=== PATIENT | male | born 1945 | race Caucasian/White ===

== ENCOUNTER 2017-12-06 19:14 | Inpatient (IN) | payer MEDICARE ==
--- NOTE | 2017-12-06 20:56 | CT ---
CT OF THE HEAD 12/06/17 COMPARISON: 01/26/17 HISTORY: Increasing weakness, slurred speech. TECHNIQUE: Serial axial CT imaging is obtained at 5 mm intervals from vertex through skull base without contrast . FINDINGS: The imaged paranasal sinuses/mastoid air cells are well aerated. There is no displaced calvarial frac ture. There is atherosclerotic calcifications of the cavernous carotid arteries. There is no intracra nial hemorrhage, midline shift, mass effect or ventricular enlargement. There is hypodensity in the r egion of the olman which may signify artifact or prior ischemia, similar when compared to prior imagin g. There is periventricular hypodensity suggesting stable small vessel disease. IMPRESSION: Stable head CT as detailed above. No intracranial hemorrhage noted. If There is clinical concern for acute infarction, followup brain MRI advised. POS: [facility]
[2017-12-06 21:05] LABS: #Basophils 0.1 thou/uL (0.0-0.2); #Eosinphils 0.2 thou/uL (0.0-0.7); #Lymphocytes 1.8 thou/uL (1.20-3.40); #Monocytes 0.8 thou/uL (0.11-0.59); #Neutrophils 3.8 thou/uL (1.40-6.50); %Basophils 1.2 % (0.0-1.0); %Lymphocytes 27.2 % (21.0-51.0); %Monocytes 11.9 % (0.0-10.0); %Neutrophils 56.7 % (42.0-75.0); Hemoglobin 14.7 g/dL (14.0-18.0); Mean Corpuscular HGB CONC 33.9 g/dL (32.0-36.0); Mean Corpuscular Hemoglobin 28.9 pg (27.0-31.0); Mean Corpuscular Volume 85.4 fl (80.0-94.0); Mean Platelet Volume 7.7 fL (7.4-10.4); Platelet Count 179 thou/uL (130-400); RBC Distribution Width 14.7 % (11.5-14.5); Red Blood Cell (RBC) Count 5.08 mill/uL (4.70-6.10); White Blood Cell (WBC) Count 6.7 thou/uL (4.8-10.8)
[2017-12-06] MEDS ORDERED: Atropine Sulfate 1 mg/10 ml Syringe ONE (21:07)
[2017-12-06 21:26] LABS: ALT (SGPT) 9 U/L (8-55); AST (SGOT) 11 U/L (5-34); Albumin 3.7 g/dL (3.4-4.8); Alkaline Phosphatase 74 U/L (40-150); Anion Gap 13 mmol/L (10-20); BUN (Urea Nitrogen) 20 mg/dL (8.4-25.7); Bilirubin, Total 0.4 mg/dL (0.2-1.2); CK (CPK) 37 U/L (30-200); Calc. Creatinine Clearance 0 mL/min (70-130); Calcium 9.4 mg/dL (7.8-10.44); Carbon Dioxide 27 mmol/L (23-31); Chloride 106 mmol/L (98-107); Estimated GFR-MDRD Greater than 90; Globulin 2.7 g/dL (2.4-3.5); Glucose 68 mg/dL (80-115); Protein, Total 6.4 g/dL (5.8-8.1); Sodium 143 mmol/L (136-145)
[2017-12-06 21:35] LABS: CKMB 0.8 ng/mL (0-6.6); Troponin I 0.011 ng/mL (< 0.028)
[2017-12-06 22:33] LABS: Bilirubin Negative (Negative); Blood, Urine Negative (Negative); Clarity CLEAR (Clear); Glucose, Urine (Dipstick) 100 mg/dL (Negative); Leukocyte Negative (Negative); Nitrite Negative (Negative); Protein, Urine (Dipstick) 30 mg/dL (Neg-Trace); Specific Gravity, Urine 1.019 (1.002-1.036)
[2017-12-06 22:34] LABS: Bacteria/HPF None Seen HPF (None Seen); Hyaline Casts/LPF 0-3 HYALINE CAST LPF (0-3 Hyaline); Pathc Cast-AUWi Flag 0.14 (0-2.49); Squamous Epithelial None Seen HPF (0-3); WBC/HPF 0-3 HPF (0-3)
[2017-12-06] MEDS ORDERED: Ondansetron ODT 4 MG TAB SL PRN (23:12)
[2017-12-06] MEDS ORDERED: Acetaminophen 325 MG TAB PO PRN ×2 (23:12→23:57)
[2017-12-06] MEDS ORDERED: Ondansetron HCl/PF 4 MG/2 ML Vial IVP PRN (23:12)
[2017-12-06 23:23] VITALS: BMI 27.3
[2017-12-06] MEDS ORDERED: Enalaprilat Dihydrate 1.25 MG/ML VIAL SLOW IVP PRN (23:57)
[2017-12-06] MEDS ORDERED: Bisacodyl 5 MG TAB PO PRN (23:57)
[2017-12-06] MEDS ORDERED: hydrALAZINE 20 MG/ML VIAL SLOW IVP PRN (23:57)
[2017-12-06] MEDS ORDERED: Acetaminophen 650 MG Suppository PR PRN (23:57)
[2017-12-07] MEDS ORDERED: Potassium Chloride 20 MEQ TAB PO SCH (00:15)
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
[2017-12-07 01:04] LABS: Troponin I 0.016 ng/mL (< 0.028)
[2017-12-07 04:29] LABS: #Eosinphils 0.2 thou/uL (0.0-0.7); #Lymphocytes 1.7 thou/uL (1.20-3.40); #Monocytes 0.7 thou/uL (0.11-0.59); #Neutrophils 4.8 thou/uL (1.40-6.50); %Basophils 0.3 % (0.0-1.0); %Eosinophils 2.8 % (0.0-10.0); %Lymphocytes 23.4 % (21.0-51.0); %Monocytes 8.8 % (0.0-10.0); %Neutrophils 64.7 % (42.0-75.0); Hemoglobin 15.6 g/dL (14.0-18.0); Mean Corpuscular HGB CONC 33.2 g/dL (32.0-36.0); Mean Corpuscular Hemoglobin 28.4 pg (27.0-31.0); Mean Corpuscular Volume 85.4 fl (80.0-94.0); Mean Platelet Volume 8.5 fL (7.4-10.4); Platelet Count 175 thou/uL (130-400); RBC Distribution Width 14.7 % (11.5-14.5); Red Blood Cell (RBC) Count 5.51 mill/uL (4.70-6.10); White Blood Cell (WBC) Count 7.4 thou/uL (4.8-10.8)
[2017-12-07 04:34] LABS: Anion Gap 12 mmol/L (10-20); BUN (Urea Nitrogen) 14 mg/dL (8.4-25.7); Calc. Creatinine Clearance 108 mL/min (70-130); Calcium 9.3 mg/dL (7.8-10.44); Carbon Dioxide 26 mmol/L (23-31); Cardiac Risk 5.6 (Less than 4.5); Chloride 105 mmol/L (98-107); Cholesterol 184 mg/dl (< 200 Desired); Estimated GFR-MDRD Greater than 90; Glucose 92 mg/dL (80-115); HDL Cholesterol 33 mg/dL (>60 Neg Risk); LDL Cholesterol, Calculated 134 mg/dL; Potassium 3.6 mmol/L (3.5-5.1); Sodium 139 mmol/L (136-145); Triglycerides 86 mg/dL (Less than 150)
[2017-12-07 04:39] LABS: Troponin I 0.025 ng/mL (< 0.028)
[2017-12-07] MEDS ORDERED: Aspirin 325 mg Enteric Coated Tablet PO SCH (09:00)
[2017-12-07] MEDS: Atorvastatin Calcium 40 MG TAB PO SCH (09:28)
[2017-12-07] MEDS: Alogliptin 25 MG TAB PO SCH (09:28)
[2017-12-07] MEDS: Glimepiride 4 MG TAB PO SCH (09:28)
[2017-12-07] MEDS: metFORMIN 500 MG TAB PO SCH ×2 (09:28→16:35)
[2017-12-07] MEDS: Aspirin 325 mg Enteric Coated Tablet PO SCH (09:29)
[2017-12-07] MEDS: Lisinopril 20 MG TAB PO SCH (09:30)
[2017-12-07] MEDS: Enoxaparin Sodium 40 MG/0.4 ML SYRINGE SC SCH (09:30)
--- NOTE | 2017-12-07 09:44 | ULT ---
ULTRASOUND DOPPLER DUPLEX CAROTID: Date: 12/07/17 HISTORY: 72-year-old male with TIA and CVA. TECHNIQUE: Falcon scale, color flow, and spectral analysis of major arteries of neck. FINDINGS: There is intimal thickening throughout the bilateral visualized common carotid arteries. There is mil d to moderate calcified plaque at the bilateral proximal internal carotid arteries, including carotid bulbs. Highest peak systolic velocities in the internal carotid arteries are 50 cm/s on the right and 65 cm/ s on the left. ICA/CCA ratios are 1.6 on the right and 1.1 on the left. Vertebral artery flow is antegrade bilaterally. IMPRESSION: 1. Mild to moderate atherosclerosis of bilateral proximal internal carotid arteries. 2. No evidence of hemodynamically significant stenosis. POS: [facility]
--- NOTE | 2017-12-07 10:37 | MRI ---
BRAIN MRI NONCONTRAST: COMPARISON: 01/26/17. INDICATION: Progressive weakness, slurred speech, stroke. FINDINGS: There is moderate global atrophy with compensatory dilatation of the ventricular system. There is a small focus of restriction involving the right pontomedullary junction. There is mild chronic microv ascular ischemic disease with superimposed cavitary lacunar infarctions. Pontine gliosis is present. Small nidus of susceptibility artifact involves the anterior right thalamus. IMPRESSION: 1. Small acute infarction of the right pontomedullary junction. 2. Chronic ischemic disease. POS: [facility]
--- NOTE | 2017-12-07 11:31 | RAD ---
MODIFIED BARIUM SWALLOW WITH SPEECH THERAPIST: Date: 12/07/17 HISTORY: 72-year-old male with dysphagia following cerebral infarction I69.391, dysphagia oropharyngeal phase R13.12, and feeding difficulties R63.3. FINDINGS: There is flash penetration with nectar. There is silent penetration with thin barium. There is silent aspiration with thin liquid barium during chin-tuck. Residua in the vallecula with solids, which sub sequently clears with thin liquid swallow. There is adequate epiglottic inversion. Somewhat decreased laryngeal elevation. IMPRESSION: 1. Pharyngeal dysphagia, including penetration and aspiration. 2. See separate complete report by speech therapist. POS: [facility]
[2017-12-07] MEDS ORDERED: Albuterol Sulfate 2.5 mg/3 ml Neb NEB PRN (13:23)
--- NOTE | 2017-12-07 14:16 | PDOC.PN ---
- Subjective Encounter Start Date: 12/07/17 Encounter Start Time: 14:21 Subjective: Seen and examined for new R pontoomedullary infarction. -: No acomplaints this morning. Feels better. -: No aute events overnight - Objective MAR Reviewed: Yes Result Diagrams: 12/07/17 04:05 12/07/17 04:05 Phys Exam - Physical Examination Constitutional: NAD HEENT: PERRLA, moist MMs, sclera anicteric, oral pharynx no lesions Neck: no JVD, supple, full ROM Respiratory: no wheezing, no rales, no rhonchi, clear to auscultation bilateral Cardiovascular: RRR, no significant murmur, no rub Gastrointestinal: soft, non-tender, no distention, positive bowel sounds Musculoskeletal: no edema, pulses present Neurological: moves all 4 limbs R hemiparesis. Strength 3/5 on R; 5/5 on left extremities. Psychiatric: normal affect, A&O x 3 Skin: no rash, normal turgor Dx/Plan (1) Acute CVA (cerebrovascular accident) Code(s): I63.9 - CEREBRAL INFARCTION, UNSPECIFIED Status: Acute Comment: Stable. Has R hemiparesis. MRI brain showed R pontomedullary junction infarction. Started on ASA, statin. Neurology consulted. (2) Bradycardia Code(s): R00.1 - BRADYCARDIA, UNSPECIFIED Status: Acute Comment: Resolved. Likely 2/2 beta-kaitlyn use. Will hold and monitor on tele. (3) Hypokalemia Code(s): E87.6 - HYPOKALEMIA Status: Resolved Comment: Replete. (4) Diabetes type 2, controlled Code(s): E11.9 - TYPE 2 DIABETES MELLITUS WITHOUT COMPLICATIONS Status: Chronic Qualifiers: Diabetes mellitus usp insulin use: without usp use Diabetes mellitus complication status: with unspecified complications Qualified Code(s) : E11.8 - Type 2 diabetes mellitus with unspecified complications Comment: Controlled. Continue home medications. Obtain A1c. (5) Dyslipidemia Code(s): E78.5 - HYPERLIPIDEMIA, UNSPECIFIED Status: Chronic Comment: Continue Atorvastatin. (6) Hypertension Code(s): I10 - ESSENTIAL (PRIMARY) HYPERTENSION Status: Chronic Qualifiers: Hypertension type: essential hypertension Qualified Code(s): I10 - Essential (primary) hypertension Comment: Achieving fair control. Continue Lisinopril. Hydralazine PRN. (7) Dysphagia Code(s): R13.10 - DYSPHAGIA, UNSPECIFIED Status: Acute Qualifiers: Dysphagia type: oropharyngeal phase Qualified Code(s): R13.12 - Dysphagia, oropharyngeal phase - Plan cont current plan of care, PT/OT, social professionals, speech therapy f/u Neurology recommendations. f/u modified barium swallow Review of Systems - Medications/Allergies Allergies/Adverse Reactions: Allergies Allergy/AdvReac Type Severity Reaction Status Date / Time liraglutide [From Victoza] Allergy Severe Anaphylaxis Verified 01/26/17 15:27 Medications: Current Medications Acetaminophen (Tylenol) 650 mg PO Q4H PRN PRN Reason: Headache/Fever or Pain Acetaminophen (Tylenol) 650 mg NV Q4H PRN PRN Reason: Headache/Fever or Pain Albuterol Sulfate (Ventolin) 2.5 mg NEB Q4H PRN PRN Reason: SOB Alogliptin Benzoate (Alogliptin) 25 mg PO DAILY [facility] Last Admin: 12/07/17 09:28 Dose: 25 mg Aspirin (Ecotrin) 325 mg PO DAILY [facility] Last Admin: 12/07/17 09:29 Dose: 325 mg Atorvastatin Calcium (Lipitor) 80 mg PO DAILY [facility] Last Admin: 12/07/17 09:28 Dose: 80 mg Bisacodyl (Dulcolax) 10 mg PO DAILYPRN PRN PRN Reason: Constipation Enalaprilat (Vasotec) 1.25 mg SLOW IVP Q6H PRN PRN Reason: BP > 220/110 Enoxaparin Sodium (Lovenox) 40 mg SC 0900 [facility] Last Admin: 12/07/17 09:30 Dose: 40 mg Glimepiride (Amaryl) 4 mg PO QAM-[facility] Last Admin: 12/07/17 09:28 Dose: 4 mg Hydralazine HCl (Apresoline) 10 mg SLOW IVP Q4H PRN PRN Reason: BP > 220/110 Lisinopril (Zestril) 20 mg PO DAILY [facility] Last Admin: 12/07/17 09:30 Dose: 20 mg Metformin HCl (Glucophage) 1,000 mg PO BID-[facility] Last Admin: 12/07/17 09:28 Dose: 1,000 mg Pantoprazole Sodium (Protonix) 40 mg PO DAILY [facility] Last Admin: 12/07/17 09:27 Dose: 40 mg Sodium Chloride (Flush - Normal Saline) 10 ml IVF Q12HR [facility] Last Admin: 12/07/17 09:29 Dose: 10 ml Sodium Chloride (Flush - Normal Saline) 10 ml IVF PRN PRN PRN Reason: Saline Flush
--- NOTE | 2017-12-07 16:37 | RAD ---
CHEST ONE VIEW 12/07/17 HISTORY: Shortness of breath. COMPARISON: 01/12/17 FINDINGS: Portable upright chest radiograph demonstrates sternotomy wires. Patient is slightly rotated to the l eft. Normal cardiac silhouette. The pulmonary vessel and hilum are normal. Costophrenic angles are cl ear. No consolidation or mass. No pneumothorax. There is diffuse bone demineralization. Hyperdensity projecting over the epigastric region is presumed to be contrast, in the stomach. Additional contrast is noted in the colon. IMPRESSION: No acute cardiopulmonary process. POS: [facility]
--- NOTE | 2017-12-07 17:11 | CON ---
DATE OF CONSULTATION: 12/07/2017 NEUROLOGY CONSULTATION FOLLOWUP NOTE HISTORY OF PRESENT ILLNESS: Mr. Machado is a 72-year-old gentleman who has been a patient of Dr. Scott durand for prior pontine stroke. He presented with a new onset of right-sided weakness and some dysarthr ia. His MRI confirmed a new area of infarct involving the pontomedullary junction. His carotid ultr asound does not show any stenosis. His echocardiogram is pending. He was not taking aspirin prior t o admission. This has been started now since he was admitted. He has not had any physical therapy a ssessments yet. He was complaining of some shortness of breath and received a breathing treatment. I agree with your current plan of treatment. He may need to be transferred to rehab to continue his recovery.
[2017-12-08 05:42] LABS: Hemoglobin A1c 7.4 % (4.0-6.0)
[2017-12-08 05:47] LABS: Anion Gap 13 mmol/L (10-20); BUN (Urea Nitrogen) 11 mg/dL (8.4-25.7); Calc. Creatinine Clearance 99 mL/min (70-130); Calcium 9.8 mg/dL (7.8-10.44); Carbon Dioxide 26 mmol/L (23-31); Chloride 103 mmol/L (98-107); Estimated GFR-MDRD Greater than 90; Glucose 147 mg/dL (80-115); Potassium 3.4 mmol/L (3.5-5.1); Sodium 139 mmol/L (136-145)
[2017-12-08] MEDS: Enoxaparin Sodium 40 MG/0.4 ML SYRINGE SC SCH (08:05)
[2017-12-08] MEDS: Lisinopril 20 MG TAB PO SCH (08:05)
[2017-12-08] MEDS: Atorvastatin Calcium 40 MG TAB PO SCH (08:05)
[2017-12-08] MEDS: Aspirin 325 mg Enteric Coated Tablet PO SCH (08:06)
[2017-12-08] MEDS: metFORMIN 500 MG TAB PO SCH ×2 (08:06→17:45)
[2017-12-08] MEDS: Alogliptin 25 MG TAB PO SCH (08:06)
[2017-12-08] MEDS: Glimepiride 4 MG TAB PO SCH (08:06)
[2017-12-08] MEDS ORDERED: Famotidine 20 MG TAB PO SCH ×2 (09:15→21:00)
[2017-12-08] MEDS ORDERED: Potassium Chloride 10 MEQ TAB PO SCH (09:15)
[2017-12-08 18:09] VITALS: BP 167/117; TEMP 98.3
--- NOTE | 2017-12-10 08:26 | DIS ---
DATE OF DISCHARGE: 12/08/2017 DISCHARGE DISPOSITION: To inpatient rehabilitation. FOLLOWUP: Follow up with Dr. Mohr in 1 week. Follow up with Dr. Liberty Estrella post discharge from re habilitation. BRIEF HOSPITAL COURSE: Patient is a 72-year-old male with hypertension; diabetes mellitus, type 2; c oronary artery disease with medication noncompliance, presented to the hospital with stroke-like symp toms. Please refer to the history and physical dated 12/06/2017 for further details. The patient was admitted to the stroke unit with a diagnosis of CVA. MRI of the brain showed small a cute infarction in the right pontomedullary junction with chronic ischemic disease. Carotid Doppler was negative for hemodynamically significant stenosis. There was [id number] atherosclerosis of bilateral proximal internal carotid arteries. Echocardiogram showed left ventricular ejection fract ion of 60%-65% with hypokinesis of the inferior wall and grade 1/3 diastolic dysfunction. The patien t was seen by Dr. Lopez, who recommended restarting aspirin, which patient had discontinued taking. On the day of discharge, there was no new focal deficit noted. Patient will continue therapy at [facility] inpatient rehabilitation. FINAL DIAGNOSES: 1. Acute cerebrovascular accident. 2. Diabetes mellitus, type 2. A1c was 7.4. 3. Hypokalemia. 4. Hyperlipidemia with cholesterol of 184, LDL 134, triglyceride 86. 5. Bradycardia with heart rate dropping in 30s on tele monitor. Beta blockers were discontinued. 6. Hypertension. 7. Coronary artery disease, status post coronary artery bypass grafting. 8. History of cerebrovascular accident. Total time coordinating the discharge of this patient was 33 minutes. DISCHARGE MEDICATIONS: Aspirin 325 mg daily, Lipitor 20 mg at bedtime, glimepiride 4 mg daily, lisin opril 20 mg daily, metformin 1000 mg twice a day, Protonix 40 mg daily, Januvia 100 mg daily.
== END 2017-12-08 19:35 | DRG 65 ==
LOC: ERS 19:14 → 2SE 21:50 → OBSVTOIN 12-07 13:50
PROVIDERS: ADMIT Internal Medicine; ATTEND Internal Medicine
DX: I63.9 Cerebral infarction, unspecified (principal); I69.351 Hemiplegia and hemiparesis following cerebral infarction affecting right dominant side; I10 Essential (primary) hypertension; I25.10 Atherosclerotic heart disease of native coronary artery without angina pectoris; E11.9 Type 2 diabetes mellitus without complications; Z95.1 Presence of aortocoronary bypass graft; R00.1 Bradycardia, unspecified; R47.1 Dysarthria and anarthria; E87.6 Hypokalemia; R13.12 Dysphagia, oropharyngeal phase
CPT/HCPCS: 36415; 36416; 70450; 70551; 71045; 74230; 80048; 80053; 80061; 81003; 81015; 82553; 83036; 84484; 85025; 93005; 93306; 93880; 94640; A4216; G8978-GP-CL; G8979-GP-CJ; G8987-GO-CL; G8988-GO-CJ; G8996-GN-CK; G8997-GN-CI; G8998-GN-CK; J0360; J0461; J1650; J7611

== ENCOUNTER 2017-12-11 14:29 | Day surgery (SDC) | payer MEDICARE ==
[~2017-12-11 14:29] MED LIST: PROPOFOL 200 MG/20 ML VIAL ONE
[2017-12-11] MEDS ORDERED: CEFAZOLIN/Water 2 GM/20 ML SYRINGE ONE (15:39)
[2017-12-11] MEDS ORDERED: hydrALAZINE 20 MG/ML VIAL ONE (18:40)
--- NOTE | 2017-12-12 05:07 | OP ---
DATE OF SURGERY: 12/11/2017 OPERATIVE PROCEDURE: Esophagogastroduodenoscopy with endoscopic gastrostomy tube placement. PREOPERATIVE DIAGNOSIS: A 72-year-old male with acute cerebrovascular accident and dysphag ia. The patient underwent EGD and PEG tube placement. POSTOPERATIVE DIAGNOSES: 1. Mild antral gastritis. 2. Mild duodenitis. 3. Successful placement of G-tube without any difficulty. PROCEDURE IN DETAIL: The patient was placed on his back and was given sedation by Anesthesia Departm ent. The patient received IV Ancef 2 grams in the day surgery. A bite block was placed. A Pentax v ideo gastroscope under direct vision was passed down the oropharynx, past the GE junction, into the s tomach. The patient had large amount of mucus in the throat, which was suctioned out. The esophagea l mucosa appeared normal. The GE junction, no pathology seen. The fundus, cardia, gastric body, no pathology seen. There was mild mucosal edema and erythema over the gastric antrum. Also, the duoden al bulb shows duodenitis. The G-tube site was marked by applying finger pressure and also by transil lumination from within. The site was cleaned and surgically prepped. The site was anesthetized with 1% Xylocaine infiltration. Over the site, a 16 Angiocath was advanced into the stomach. Through th e Angiocath, a guidewire was advanced into the stomach. This wire was grasped with polypectomy snare and pulled outside the mouth. To the end of the guidewire protruding outside the mouth, a gastrosto my tube was connected. The wire was pulled back retrograde and the tube left in place after incision was made in the skin around the wire area. The patient rescoped again. The tube appears in good pl neftaly and no complications noted. The stomach was decompressed and the scope removed. DISCHARGE PLANNING: Mr. Kwaku Machado is a 72-year-old male with a CVA recently with dysph agia. The patient underwent EGD and PEG tube placed. He underwent the procedure without difficulty. The patient being discharged back to [facility] and will be followed by Dr. Paradise Villarreal. May start tube feeding later on today or early tomorrow morning.
== END 2017-12-11 20:01 | disposition home or self-care (01) ==
LOC: SDC 14:29
PROVIDERS: ATTEND Internal Medicine Gastroenterology
PROC: 0DH63UZ Insertion of Feeding Device into Stomach, Percutaneous Approach (ICD-10-PCS; principal; 2017-12-11)
DX: R13.10 Dysphagia, unspecified (principal); I63.9 Cerebral infarction, unspecified; K29.70 Gastritis, unspecified, without bleeding; K29.80 Duodenitis without bleeding
CPT/HCPCS: 36416; 96374; J0360; J2704

== ENCOUNTER 2018-11-22 17:07 | Inpatient (IN) | payer MEDICARE ==
[2018-11-22 17:40] LABS: #Basophils 0.1 thou/uL (0.0-0.2); #Eosinphils 0.3 thou/uL (0.0-0.7); #Lymphocytes 1.9 thou/uL (1.20-3.40); #Monocytes 0.6 thou/uL (0.11-0.59); #Neutrophils 4.2 thou/uL (1.40-6.50); %Basophils 0.9 % (0.0-1.0); %Lymphocytes 26.5 % (21.0-51.0); %Monocytes 8.9 % (0.0-10.0); %Neutrophils 59.7 % (42.0-75.0); Mean Corpuscular HGB CONC 33.4 g/dL (32.0-36.0); Mean Corpuscular Volume 86.8 fL (78.0-98.0); Mean Platelet Volume 8.4 fL (7.4-10.4); Platelet Count 160 thou/uL (130-400); RBC Distribution Width 14.1 % (11.5-14.5); Red Blood Cell (RBC) Count 5.17 mill/uL (4.70-6.10)
[2018-11-22 17:58] LABS: ALT (SGPT) 10 U/L (8-55); AST (SGOT) 15 U/L (5-34); Albumin 3.8 g/dL (3.4-4.8); Alkaline Phosphatase 91 U/L (40-150); Anion Gap 13 mmol/L (10-20); BUN (Urea Nitrogen) 17 mg/dL (8.4-25.7); Bilirubin, Total 0.4 mg/dL (0.2-1.2); Calc. Creatinine Clearance 0 mL/min (70-130); Calcium 9.6 mg/dL (7.8-10.44); Carbon Dioxide 28 mmol/L (23-31); Chloride 107 mmol/L (98-107); Estimated GFR-MDRD 90; Globulin 3.1 g/dL (2.4-3.5); Glucose 79 mg/dL (83-110); Potassium 3.9 mmol/L (3.5-5.1); Protein, Total 6.9 g/dL (5.8-8.1); Sodium 144 mmol/L (136-145)
[2018-11-22] MEDS ORDERED: hydrALAZINE 20 MG/ML VIAL ONE ×2 (18:23→18:47)
--- NOTE | 2018-11-22 18:52 | RAD ---
CHEST ONE VIEW: HISTORY: Dyspnea. Bodyaches. COMPARISON: 12/07/2017 FINDINGS: Borderline cardiomegaly. Postop midline sternotomy. No confluent pneumonia, overt edema, or pleural effusion. IMPRESSION: No significant acute intrathoracic disease. Borderline heart size. Minimal rotation to the left. A therosclerosis of the aorta. POS: [facility]
[2018-11-22] MEDS ORDERED: Ondansetron PF 4 MG/2 ML Vial IVP PRN (20:38)
[2018-11-22] MEDS ORDERED: Ondansetron ODT 4 MG TAB SL PRN (20:38)
[2018-11-22 21:17] VITALS: BMI 25.7
[2018-11-22 21:25] LABS: Troponin I 0.018 ng/mL (< 0.028)
[2018-11-22] MEDS ORDERED: Acetaminophen 325 MG TAB PO PRN (21:30)
[2018-11-22] MEDS ORDERED: Senokot S 8.6-50 MG TAB PO PRN ×2 (21:30)
[2018-11-22] MEDS ORDERED: Bisacodyl 5 MG TAB PO PRN (21:30)
[2018-11-22] MEDS ORDERED: Diabetic Tussin 200 MG/10 ML UDCUP PO PRN (21:30)
[2018-11-22] MEDS ORDERED: Calcium Carbonate 500 MG ChewTAB PO PRN (21:30)
[2018-11-22] MEDS ORDERED: Ondansetron ODT 4 MG TAB PO PRN (21:30)
[2018-11-22] MEDS ORDERED: Nitroglycerin 0.4 MG TAB (25 Tab Bottle) SL PRN (21:30)
[2018-11-22] MEDS ORDERED: Benzonatate 100 MG CAP PO PRN (21:30)
[2018-11-22] MEDS ORDERED: Dextrose 50% Abboject 50 ML SYRINGE SLOW IVP PRN (22:05)
[2018-11-22] MEDS ORDERED: Dextrose 5% in Water 1,000 ML IV PRN (22:05)
[2018-11-22] MEDS ORDERED: Lisinopril 10 MG TAB PO SCH (22:15)
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
[2018-11-23 00:54] LABS: Troponin I 0.019 ng/mL (< 0.028)
[2018-11-23 05:41] LABS: #Basophils 0.1 thou/uL (0.0-0.2); #Eosinphils 0.4 thou/uL (0.0-0.7); #Lymphocytes 1.8 thou/uL (1.20-3.40); %Basophils 0.6 % (0.0-1.0); %Eosinophils 3.6 % (0.0-10.0); %Lymphocytes 17.6 % (21.0-51.0); %Monocytes 9.8 % (0.0-10.0); %Neutrophils 68.5 % (42.0-75.0); Hemoglobin 15.9 g/dL (14.0-18.0); Mean Corpuscular HGB CONC 33.5 g/dL (32.0-36.0); Mean Corpuscular Hemoglobin 29.3 pg (27.0-31.0); Mean Corpuscular Volume 87.6 fL (78.0-98.0); Mean Platelet Volume 8.5 fL (7.4-10.4); Platelet Count 173 thou/uL (130-400); RBC Distribution Width 14.2 % (11.5-14.5); Red Blood Cell (RBC) Count 5.41 mill/uL (4.70-6.10); White Blood Cell (WBC) Count 10.2 thou/uL (4.8-10.8)
[2018-11-23 05:55] LABS: Anion Gap 11 mmol/L (10-20); BUN (Urea Nitrogen) 15 mg/dL (8.4-25.7); Calc. Creatinine Clearance 87 mL/min (70-130); Calcium 9.7 mg/dL (7.8-10.44); Carbon Dioxide 24 mmol/L (23-31); Chloride 108 mmol/L (98-107); Estimated GFR-MDRD Greater than 90; Glucose 134 mg/dL (83-110); Potassium 4.1 mmol/L (3.5-5.1); Sodium 139 mmol/L (136-145)
[2018-11-23] MEDS ORDERED: Lisinopril 20 MG TAB PO SCH (09:00)
[2018-11-23] MEDS: Enoxaparin Sodium 40 MG/0.4 ML SYRINGE SC SCH (09:29)
[2018-11-23] MEDS: Aspirin 325 mg Enteric Coated Tablet PO SCH (09:29)
[2018-11-23] MEDS: Famotidine 20 MG TAB PO SCH ×2 (09:30→20:51)
[2018-11-23] MEDS: Loratadine 10 MG TAB PO SCH (09:31)
[2018-11-23] MEDS: hydrALAZINE 20 MG/ML VIAL SLOW IVP PRN ×2 (13:28→23:54)
--- NOTE | 2018-11-23 15:06 | PRG ---
DATE OF SERVICE: 11/23/2018 CHIEF COMPLAINT: Generalized weakness and body aches. HISTORY OF PRESENT ILLNESS: This is a 73-year-old male with coronary artery disease, hypertension, pontine stroke with right hemiparesis, diabetes, and hyperlipidemia, who came to emergency department for generalized weakness and body aches. Negative flu swab. Found bradycardic on triage. SUBJECTIVE: The patient was seen and evaluated at bedside. His is present. He has no acute complaints except for being hungry. Per telemetry, no bradycardia. Mild tachycardia instead. Per nurse, no other acute events overnight. Mild systolic blood pressure elevation. REVIEW OF SYSTEMS: All systems are reviewed and negative except for the one as mentioned above. PHYSICAL EXAMINATION: VITAL SIGNS: Blood pressure is 175/80, pulse 115, respirations 14, oxygen saturation 97% on room air, temperature 97.7 Fahrenheit. GENERAL: He appears in no distress. He is awake, alert, and oriented x3. HEAD AND NECK: Pupils are reactive to light. Extraocular muscles are intact. Mucous membranes are moist. Neck is supple. CARDIOVASCULAR: Mild tachycardia. Regular rhythm. No murmurs, rubs, or gallops. PULMONARY: Clear to auscultation bilaterally. No wheezes, rhonchi, or crackles. ABDOMEN: Soft, nontender, and nondistended. Positive bowel sounds. EXTREMITIES: No palpable edema. Pulses are symmetric. Range of motion is intact. SKIN: Fair skin. No breakdown. NEUROLOGIC: Right hemiparesis. Cranial nerves 2 through 12 are grossly intact. LABORATORY DATA: Laboratory abnormalities: Glucose 134. Rest of the labs appear normal. Two sets of troponin are negative. EKG is reviewed. Chest x-ray report is reviewed. CURRENT MEDICATIONS: Reviewed. ASSESSMENT AND PLAN: 1. Symptomatic bradycardia: Suspected beta-kaitlyn induced. Currently sinus tachycardia. We will resume beta-kaitlyn at a lower dose. Cardiology evaluation pending. 2. Hypertensive urgency: Resume lisinopril and titrate dose slowly. Continue p.r.n. hydralazine. 3. Essential hypertension: See above. 4. Coronary artery disease: Continue home treatment. 5. Controlled diabetes mellitus, type 2: 6. Hyperlipidemia: Continue home statin. 7. Left pontine stroke with right hemiparesis: Fall precautions. CODE STATUS: Full code. CORE MEASURES: Lovenox. DISPOSITION: Medical-surgical unit on telemetry. PROGNOSIS: Guarded. CLINICAL STATUS: Guarded. EXPECTED DISCHARGE: To be determined. TOTAL TIME SPENT: 32 minutes. Job ID: [id number]
[2018-11-23] MEDS: HumaLOG 300 UNITS/3 ML VIAL SC PRN (17:50)
[2018-11-23] MEDS: Metoprolol Tartrate 25 MG TAB PO SCH (20:51)
[2018-11-23] MEDS ORDERED: Atorvastatin Calcium 20 MG TAB PO SCH (21:00)
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
[2018-11-24 05:06] LABS: Cardiac Risk 4.2 (Less than 4.5)
[2018-11-24] MEDS: Lisinopril 20 MG TAB PO SCH (09:40)
[2018-11-24] MEDS: Metoprolol Tartrate 25 MG TAB PO SCH ×2 (09:40→21:14)
[2018-11-24] MEDS: Loratadine 10 MG TAB PO SCH (09:41)
[2018-11-24] MEDS: Aspirin 325 mg Enteric Coated Tablet PO SCH (09:41)
[2018-11-24] MEDS: Famotidine 20 MG TAB PO SCH ×2 (09:41→21:14)
[2018-11-24] MEDS: Enoxaparin Sodium 40 MG/0.4 ML SYRINGE SC SCH (09:41)
[2018-11-24] MEDS: HumaLOG 300 UNITS/3 ML VIAL SC PRN (15:11)
--- NOTE | 2018-11-24 15:52 | PRG ---
DATE OF SERVICE: 11/24/2018 CHIEF COMPLAINT: Generalized weakness and body aches. HISTORY OF PRESENT ILLNESS: This is a 73-year-old male with a history of coronary artery disease, hypertension, pontine stroke with right hemiparesis, diabetes, hyperlipidemia, who came to the emergency department for generalized weakness and body aches. He was found bradycardic on triage. SUBJECTIVE: The patient is seen and evaluated at bedside. He feels much better. No family members present. Telemetry reports first-degree AV block only. Per nurse, no other acute events. REVIEW OF SYSTEMS: All systems are reviewed and negative except for the ones mentioned above. PHYSICAL EXAMINATION: VITAL SIGNS: Blood pressure 153/56, pulse 65, respirations 20, oxygen saturation 96% on room air, temperature 98.3 Fahrenheit. GENERAL: No distress. He is awake, alert, oriented x3. HEAD AND NECK: Pupils are equal and reactive to light. Extraocular muscles are intact. Mucous membranes are moist. Neck is supple. CARDIOVASCULAR: Rhythm and rate are regular. No audible murmurs, rubs, or gallops. PULMONARY: Clear to auscultation bilaterally. No wheezes, rhonchi, or crackles. ABDOMEN: Soft, nontender, nondistended, positive bowel sounds. EXTREMITIES: No palpable edema. Pulses are symmetric. Range of motion is intact. SKIN: Fair skin. No lesions. NEUROLOGIC: Right hemiparesis. Cranial nerves 2 through 12 are grossly intact. LABORATORY DATA: Laboratory abnormalities: CBC within normal limits. Glucose 217. Lipid profile is normal. CURRENT MEDICATIONS: Reviewed. ASSESSMENT AND PLAN: 1. Symptomatic bradycardia: Temporarily resolved. Seen by Cardiology. The patient will undergo pacemaker implantation on Monday. 2. Hypertensive urgency: Resolved. Continue titrating medications to goal. 3. Essential hypertension: See above. 4. Coronary artery disease: Continue home treatment. 5. Controlled diabetes mellitus type 2: Continue home treatment. 6. Hyperlipidemia: Continue statin. 7. Left pontine stroke with right hemiparesis: Fall precautions. CODE STATUS: Full code. CORE MEASURE: Lovenox. DISPOSITION: Medical/surgical unit on telemetry. PROGNOSIS: Guarded. CLINICAL STATUS: Guarded. EXPECTED DISCHARGE: To be determined. TOTAL TIME SPENT: 28 minutes. Job ID: [id number]
[2018-11-24] MEDS: Atorvastatin Calcium 40 MG TAB PO SCH (21:14)
[2018-11-25] MEDS: Enoxaparin Sodium 40 MG/0.4 ML SYRINGE SC SCH (09:38)
[2018-11-25] MEDS: Metoprolol Tartrate 25 MG TAB PO SCH ×2 (09:38→21:00)
[2018-11-25] MEDS: Famotidine 20 MG TAB PO SCH ×2 (09:38→21:02)
[2018-11-25] MEDS: Loratadine 10 MG TAB PO SCH (09:38)
[2018-11-25] MEDS: Aspirin 325 mg Enteric Coated Tablet PO SCH (09:38)
[2018-11-25] MEDS: Lisinopril 20 MG TAB PO SCH (09:38)
[2018-11-25 11:48] LABS: Anion Gap 14 mmol/L (10-20); BUN (Urea Nitrogen) 22 mg/dL (8.4-25.7); Calc. Creatinine Clearance 64 mL/min (70-130); Calcium 9.3 mg/dL (7.8-10.44); Carbon Dioxide 21 mmol/L (23-31); Chloride 104 mmol/L (98-107); Estimated GFR-MDRD 73; Glucose 295 mg/dL (83-110); Magnesium 2.2 mg/dL (1.6-2.6); Potassium 3.7 mmol/L (3.5-5.1); Sodium 135 mmol/L (136-145)
--- NOTE | 2018-11-25 15:37 | PRG ---
DATE OF SERVICE: 11/25/2018 CHIEF COMPLAINT: Generalized weakness and body aches. HISTORY OF PRESENT ILLNESS: A 73-year-old male with history of coronary artery disease, hypertension, pontine stroke with right hemiparesis, diabetes, and hyperlipidemia, who came to the emergency department for generalized weakness and body aches. He was found to be bradycardic on triage. SUBJECTIVE: The patient was seen and evaluated at bedside. He has no new complaints. No acute events on telemetry. Per nurse, no acute events overnight. REVIEW OF SYSTEMS: All systems are reviewed and negative except for the ones mentioned above. PHYSICAL EXAMINATION: VITAL SIGNS: Blood pressure 142/78, pulse 68, respirations 20, oxygen saturation 96% on room air, and temperature 98.3 Fahrenheit. GENERAL: No distress. Awake, alert, and oriented x3. HEAD AND NECK: Pupils are equal, reactive to light. Extraocular muscles are intact. Mucous membranes are moist. NECK: Supple. CARDIOVASCULAR: Rhythm and rate are regular. No audible murmurs, rubs, or gallops. PULMONARY: Clear to auscultation bilaterally. No wheezes, rhonchi, or crackles. ABDOMEN: Soft, nontender, nondistended, positive bowel sounds. EXTREMITIES: No palpable edema. Pulses are symmetric. Range of motion is intact. SKIN: Fair skin clear. No lesions. NEUROLOGIC: Right hemiparesis. Cranial nerves 2 through 12 are grossly intact. LABORATORY DATA: Laboratory abnormalities; glucose 295. CURRENT MEDICATIONS: Reviewed. ASSESSMENT AND PLAN: 1. Symptomatic bradycardia: Temporarily resolved. Cardiology is following. The patient is having pacemaker implantation on Monday. 2. Hypertensive urgency: Resolved. 3. Essential hypertension: See above. 4. Coronary artery disease: Continue home treatment. 5. Uncontrolled diabetes mellitus type 2: Continue titrating insulin. 6. Hyperlipidemia: Continue statin. 7. Pontine stroke with right hemiparesis: Chronic. Fall precautions. CODE STATUS: Full code. CORE MEASURES: Lovenox. DISPOSITION: Medical surgical unit on telemetry. PROGNOSIS: Guarded. CLINICAL STATUS: Guarded. EXPECTED DISCHARGE: To be determined after the pacemaker implantation. TOTAL TIME SPENT: 25 minutes. Job ID: [id number]
[2018-11-25] MEDS: Atorvastatin Calcium 40 MG TAB PO SCH (21:02)
[2018-11-25] MEDS: HumaLOG 300 UNITS/3 ML VIAL SC PRN (21:03)
[2018-11-26 05:27] LABS: Anion Gap 14 mmol/L (10-20); BUN (Urea Nitrogen) 22 mg/dL (8.4-25.7); Calc. Creatinine Clearance 67 mL/min (70-130); Calcium 9.3 mg/dL (7.8-10.44); Carbon Dioxide 23 mmol/L (23-31); Chloride 106 mmol/L (98-107); Estimated GFR-MDRD 77; Glucose 157 mg/dL (83-110); Magnesium 2.2 mg/dL (1.6-2.6); Potassium 3.6 mmol/L (3.5-5.1); Sodium 139 mmol/L (136-145)
[2018-11-26] MEDS ORDERED: Gentamicin 80 MG/2 ML VIAL ONE (10:03)
[2018-11-26] MEDS ORDERED: CEFAZOLIN 1 GM VIAL ONE (10:03)
[2018-11-26] MEDS: Aspirin 325 mg Enteric Coated Tablet PO SCH (10:24)
[2018-11-26] MEDS: Lisinopril 20 MG TAB PO SCH ×2 (10:24→13:24)
[2018-11-26] MEDS: Metoprolol Tartrate 25 MG TAB PO SCH (10:24)
[2018-11-26] MEDS: Famotidine 20 MG TAB PO SCH ×3 (10:24→20:32)
[2018-11-26] MEDS: Enoxaparin Sodium 40 MG/0.4 ML SYRINGE SC SCH (10:24)
[2018-11-26] MEDS: Loratadine 10 MG TAB PO SCH (10:24)
[2018-11-26] MEDS ORDERED: Midazolam HCl 2 mg/2 ml Vial ONE (10:49)
[2018-11-26] MEDS ORDERED: Fentanyl 100 MCG/2 ML VIAL ONE (10:50)
[2018-11-26] MEDS ORDERED: Lidocaine 1% (PF) 30 ML VIAL ONE (10:58)
[2018-11-26] MEDS ORDERED: Metoprolol Tartrate 25 MG TAB PO SCH (12:30)
--- NOTE | 2018-11-26 13:39 | RAD ---
EXAM: CHEST ONE VIEW HISTORY: Post cardiac device placement. COMPARISON: 11/12/2018 FINDINGS: Post surgical changes related to median sternotomy are again noted. There has been interval placement of a dual lead left subclavian cardiac pacemaking device. No pneumothorax is appreciated on this exam. The cardiac silhouette is magnified by projection but does appear to be within normal limits. T he pulmonary vasculature is within normal limits. The lungs are clear. The osseous structures are intact. IMPRESSION: 1. Interval placement of a dual-lead left subclavian cardiac pacemaking device without evidence of a pneumothorax or pleural effusion.
[2018-11-26] MEDS: Cephalexin 250 MG CAP PO SCH ×2 (14:20→20:32)
[2018-11-26] MEDS: hydrALAZINE 20 MG/ML VIAL SLOW IVP PRN (14:20)
--- NOTE | 2018-11-26 14:50 | PDOC.PN ---
- Subjective Encounter Start Date: 11/26/18 Encounter Start Time: 08:00 CHIEF COMPLAINT: Generalized weakness and body aches. HISTORY OF PRESENT ILLNESS: This is a 73-year-old male with coronary artery disease, hypertension, pontine stroke with right hemiparesis, diabetes, and hyperlipidemia, who came to emergency department for generalized weakness and body aches. Negative flu swab. Found bradycardic on triage. SUBJECTIVE: The patient was seen and evaluated at bedside. No acute complaints. Per telemetry, no bradycardia. Per nurse, no other acute events overnight. REVIEW OF SYSTEMS: All systems are reviewed and negative except for the one as mentioned above. - Objective Full code MAR Reviewed: Yes Vital Signs & Weight: Vital Signs (12 hours) Temp Pulse Resp BP BP BP Pulse Ox 11/26/18 14:20 189/72 H 11/26/18 13:24 189/72 H 11/26/18 08:11 96 11/26/18 07:45 97.8 F 68 20 177/87 H 96 11/26/18 04:00 97.3 F L 61 18 170/86 H 96 Weight Weight 146 lb 14.4 oz I&O: 11/25/18 11/26/18 11/27/18 06:59 06:59 06:59 Intake Total 1260 890 Output Total 1105 945 Balance 155 -55 Result Diagrams: 11/23/18 05:09 11/26/18 04:43 Additional Labs: Accuchecks 11/26/18 11/25/18 11/25/18 05:21 20:22 17:53 POC Glucose 141 H 294 H 166 H Radiology Reviewed by me: Yes EKG Reviewed by me: Yes Phys Exam - Physical Examination Constitutional: NAD HEENT: PERRLA, moist MMs, oral pharynx no lesions Neck: no nodes, no JVD, supple, full ROM Respiratory: no wheezing, no rales, no rhonchi, clear to auscultation bilateral Cardiovascular: RRR, no significant murmur, no rub Gastrointestinal: soft, non-tender, no distention, positive bowel sounds Musculoskeletal: no edema, pulses present Neurological: normal sensation, moves all 4 limbs Right hemiparesis Psychiatric: normal affect, A&O x 3 Skin: no rash, normal turgor, cap refill <2 seconds Dx/Plan (1) Symptomatic bradycardia Code(s): R00.1 - BRADYCARDIA, UNSPECIFIED Status: Acute Plan: Patient undergoing pacer placement today per novelty maker. (2) Hypertensive urgency Code(s): I16.0 - HYPERTENSIVE URGENCY Status: Acute Plan: Resolved (3) CAD (coronary artery disease) Code(s): I25.10 - ATHSCL HEART DISEASE OF [place] CORONARY ARTERY W/O ANG PCTRS Status: Chronic (4) Hyperlipemia Code(s): E78.5 - HYPERLIPIDEMIA, UNSPECIFIED Status: Chronic (5) Ischemic stroke Code(s): I63.9 - CEREBRAL INFARCTION, UNSPECIFIED Status: Chronic Plan: With right hemiparesis. fall precautions (6) Diabetes type 2, controlled Code(s): E11.9 - TYPE 2 DIABETES MELLITUS WITHOUT COMPLICATIONS Status: Chronic Qualifiers: Diabetes mellitus mold mover insulin use: without assisted use Diabetes mellitus complication status: with unspecified complications Qualified Code(s) : E11.8 - Type 2 diabetes mellitus with unspecified complications Comment: Controlled. Continue home medications. Obtain A1c. (7) Hypertension Code(s): I10 - ESSENTIAL (PRIMARY) HYPERTENSION Status: Chronic Qualifiers: Hypertension type: essential hypertension Qualified Code(s): I10 - Essential (primary) hypertension Comment: Achieving fair control. Continue Lisinopril. Hydralazine PRN. - Plan cont current plan of care CODE; FULL CORE; LOVENOX DISP; TELEMETRY PROG; GUARDED CLINICAL STATUS; GUARDED EXPECTED DISCHARGE; IN THE NEXT 48 HOURS TOTAL TIME SPENT; 25 MINUTES DATE OF SERVICE: 11/26/2018
--- NOTE | 2018-11-26 15:24 | CCL ---
CARDIOLOGY PROCEDURE NOTE: Date: 11/26/18 PROCEDURE: Permanent pacemaker placement, MRI-compatible. INDICATION: 2:1 AV block, extreme weakness. PROCEDURE DETAILS: The patient was brought to the cardiac refuse laborer and the left subclavian area was prepped and draped. The patient was given Versed 1 mg and Fentanyl 25 mg for 1 hour of total moderate sedation. 1% lidoca ine was infiltrated. A J-wire was placed into the left subclavian vein. Pacemaker pocket was manufact ured using blunt and sharp dissection with electrocautery for hemostasis. There was an arterial bleed er that required two [id number] sutures with 3-0 Vicryl for hemostasis. Antibiotic solution-soak ed gauze was placed into the pocket. A second J-wire was then placed into the left subclavian vein. U sing 7 [place] sheaths, the atrial and ventricular leads were inserted. The ventricular lead was advan brittany to the RV apex and screwed into place. The right atrial lead was screwed into the right atrium. Ventricular Lead: R-wave 5.8, impedance 905, threshold 0.4. Right Atrial Lead: P-wave 2.8, impedance 602, threshold 1.4. The tabs on the suture tie-downs were removed and both leads were secured in place with two sutures o f 0 silk. The leads were then attached to the pacemaker generator and this was placed into the pocket and secured with one suture of 0 silk. The incision was irrigated with copious amounts of antibiotic solution. This was then closed using two layers of 3-0 Vicryl and one layer of 4-0 Vicryl. Dermabond was placed on the incision. The patient tolerated the procedure well.
[2018-11-26] MEDS ORDERED: Acetaminophen/Codeine 30-300mg Tablet PO SCH (20:00)
[2018-11-26] MEDS: HumaLOG 300 UNITS/3 ML VIAL SC PRN (20:31)
[2018-11-26] MEDS: Atorvastatin Calcium 40 MG TAB PO SCH (20:31)
[2018-11-26] MEDS: Metoprolol Tartrate 50 MG TAB PO SCH (20:32)
[2018-11-27] MEDS: hydrALAZINE 20 MG/ML VIAL SLOW IVP PRN (03:46)
[2018-11-27 07:38] LABS: Anion Gap 13 mmol/L (10-20); BUN (Urea Nitrogen) 17 mg/dL (8.4-25.7); Calc. Creatinine Clearance 82 mL/min (70-130); Calcium 9.2 mg/dL (7.8-10.44); Carbon Dioxide 23 mmol/L (23-31); Chloride 107 mmol/L (98-107); Estimated GFR-MDRD Greater than 90; Glucose 183 mg/dL (83-110); Magnesium 2.1 mg/dL (1.6-2.6); Potassium 3.9 mmol/L (3.5-5.1); Sodium 139 mmol/L (136-145)
[2018-11-27] MEDS: Lisinopril 20 MG TAB PO SCH (09:37)
[2018-11-27] MEDS: Cephalexin 250 MG CAP PO SCH (09:37)
[2018-11-27] MEDS: Aspirin 325 mg Enteric Coated Tablet PO SCH (09:37)
[2018-11-27] MEDS: Loratadine 10 MG TAB PO SCH (09:37)
[2018-11-27] MEDS: Metoprolol Tartrate 50 MG TAB PO SCH (09:38)
[2018-11-27] MEDS: Famotidine 20 MG TAB PO SCH (09:38)
[2018-11-27] MEDS: HumaLOG 300 UNITS/3 ML VIAL SC PRN (11:41)
[2018-11-27 11:46] VITALS: BP 171/95; TEMP 97.8
--- NOTE | 2018-11-27 23:15 | EKG ---
Test Reason : Blood Pressure : / mmHG Vent. Rate : 071 BPM Atrial Rate : 071 BPM P-R Int : 232 ms QRS Dur : 084 ms QT Int : 412 ms P-R-T Axes : 054 004 235 degrees QTc Int : 447 ms Sinus rhythm with 1st degree A-V block Nonspecific T wave abnormality , Can not R/O inferolateral/high lateral ischemia. Abnormal ECG When compared with ECG of 22-NOV-2018 17:20, (Unconfirmed) Criteria for Septal infarct are no longer Present T wave inversion now evident in Inferior leads T wave inversion more evident in Lateral leads Confirmed by FRANCHESCA DOBSON ([id number]) on 11/27/2018 11:15:07 PM Referred By: VILMA Confirmed By:FRANCHESCA DOBSON
--- NOTE | 2018-11-28 03:51 | DIS ---
DATE OF ADMISSION: 11/22/2018 DATE OF DISCHARGE: 11/27/2018 ADMITTING PHYSICIAN: Dr. Anay Odom. DISCHARGING PHYSICIAN: Dr. Jacobson. PRIMARY CARE PHYSICIAN: Dom Mohr MD. ADMITTING DIAGNOSES: 1. Symptomatic sinus bradycardia. 2. Hypertensive urgency. 3. Elevated BNP. 4. Diabetes mellitus type 2. 5. Hypertension. 6. History of cerebrovascular accident. DISCHARGE DIAGNOSES: 1. Symptomatic bradycardia: Resolved. 2. Status post pacemaker placement. 3. Hypertensive urgency: Resolved. 4. Essential hypertension. 5. Coronary artery disease. 6. Uncontrolled diabetes mellitus type 2. 7. Hyperlipidemia. 8. Chronic pontine stroke with right hemiparesis. CONSULT: Cardiology. PROCEDURES: Pacemaker placement. SPECIAL IMAGING: Echocardiogram. HOSPITAL COURSE: This is a 73-year-old male with history as mentioned above, who came to the emergency department for generalized weakness and body aches. He was found to be bradycardic on EKG. Cardiology was consulted. They indicated the need for a pacemaker placement. The patient underwent a pacemaker placement without complications. He is now stable for discharge. PHYSICAL EXAMINATION: VITAL SIGNS: Blood pressure 155/77, pulse 74, respirations 16, oxygen saturation 95% on room air, temperature 97.7 Fahrenheit. GENERAL: No distress. He is awake, alert, oriented x3. HEAD AND NECK: Pupils are reactive to light. Extraocular muscles are intact. Mucous membranes are moist. Neck is supple. CARDIOVASCULAR: Rhythm and rate are regular. No audible murmurs, rubs, or gallops. PULMONARY: Clear to auscultation bilaterally. No wheezes, rhonchi, or crackles. ABDOMEN: Soft, nontender, nondistended. Positive bowel sounds. EXTREMITIES: No palpable edema. Pulses are symmetric. Capillary refill less than 3 seconds. Range of motion is intact. SKIN: Surgical scar looks healing appropriately. The rest of the skin without lesions. NEUROLOGIC: Right hemiparesis. Cranial nerves 2 through 12 are grossly intact. LABORATORY ABNORMALITIES: Chemistry showed glucose of 183. Rest of the chemistries normal. DISCHARGE DISPOSITION: Home with self care. CONDITION: Stable. DISCHARGE DIET: Cardiac and diabetic diet as tolerated. DISCHARGE ACTIVITY: Increase activity as tolerated. DISCHARGE MEDICATIONS: See medical reconciliation for details. DISCHARGE FOLLOWUP: Follow up with Cardiology as directed, with primary care physician in 1 or 2 weeks. DISCHARGE INSTRUCTIONS: The patient was instructed to return to the emergency department if symptoms worsen. Take his medications as directed and not to miss any appointments. TIME OF DISCHARGE AND PLANNIN minutes. Job ID: [id number]
== END 2018-11-27 13:10 | disposition home or self-care (01) | DRG 243 ==
LOC: ERS 17:07 → 2NO 20:22
PROVIDERS: ADMIT Internal Medicine; ATTEND Internal Medicine
PROC: 0JH606Z Insertion of Pacemaker, Dual Chamber into Chest Subcutaneous Tissue and Fascia, Open Approach (ICD-10-PCS; principal; 2018-11-26)
PROC: 02HK3JZ Insertion of Pacemaker Lead into Right Ventricle, Percutaneous Approach (ICD-10-PCS; 2018-11-26)
PROC: 02H63JZ Insertion of Pacemaker Lead into Right Atrium, Percutaneous Approach (ICD-10-PCS; 2018-11-26)
DX: R00.1 Bradycardia, unspecified (principal); I69.351 Hemiplegia and hemiparesis following cerebral infarction affecting right dominant side; I44.1 Atrioventricular block, second degree; E78.00 Pure hypercholesterolemia, unspecified; F41.9 Anxiety disorder, unspecified; E11.65 Type 2 diabetes mellitus with hyperglycemia; I25.10 Atherosclerotic heart disease of native coronary artery without angina pectoris; I16.0 Hypertensive urgency; I10 Essential (primary) hypertension; F32.9 Major depressive disorder, single episode, unspecified; I25.2 Old myocardial infarction; Z95.1 Presence of aortocoronary bypass graft; Z88.8 Allergy status to other drugs, medicaments and biological substances; Z79.84 Long term (current) use of oral hypoglycemic drugs; Z79.82 Long term (current) use of aspirin; Z79.899 Other long term (current) drug therapy
CPT/HCPCS: 33208; 36415; 36416; 71045; 80048; 80053; 80061; 83735; 83880; 84443; 84484; 85025; 87804; 93005; 93010; 93306; 96374; 99152; 99153; C1785; C1898; J0360; J0690; J1580; J1650; J2001; J2250; J3010

== ENCOUNTER 2018-12-17 18:48 | Inpatient (IN) | payer MEDICARE ==
[2018-12-17 19:23] LABS: #Eosinphils 0.2 thou/uL (0.0-0.7); #Lymphocytes 1.2 thou/uL (1.20-3.40); #Monocytes 0.5 thou/uL (0.11-0.59); #Neutrophils 4.7 thou/uL (1.40-6.50); %Basophils 0.5 % (0.0-1.0); %Lymphocytes 17.7 % (21.0-51.0); %Monocytes 7.9 % (0.0-10.0); %Neutrophils 70.9 % (42.0-75.0); Hemoglobin 15.3 g/dL (14.0-18.0); Mean Corpuscular HGB CONC 34.1 g/dL (32.0-36.0); Mean Corpuscular Hemoglobin 29.3 pg (27.0-31.0); Mean Corpuscular Volume 86.1 fL (78.0-98.0); Platelet Count 185 thou/uL (130-400); RBC Distribution Width 14.2 % (11.5-14.5); Red Blood Cell (RBC) Count 5.21 mill/uL (4.70-6.10); White Blood Cell (WBC) Count 6.6 thou/uL (4.8-10.8)
[2018-12-17 19:48] LABS: ALT (SGPT) 13 U/L (8-55); AST (SGOT) 13 U/L (5-34); Albumin 3.8 g/dL (3.4-4.8); Alkaline Phosphatase 114 U/L (40-150); Anion Gap 13 mmol/L (10-20); BUN (Urea Nitrogen) 21 mg/dL (8.4-25.7); Bilirubin, Total 0.4 mg/dL (0.2-1.2); CK (CPK) 50 U/L (30-200); Calc. Creatinine Clearance 0 mL/min (70-130); Calcium 9.6 mg/dL (7.8-10.44); Carbon Dioxide 28 mmol/L (23-31); Chloride 102 mmol/L (98-107); Estimated GFR-MDRD 68; Globulin 2.7 g/dL (2.4-3.5); Glucose 372 mg/dL (83-110); Potassium 3.8 mmol/L (3.5-5.1); Protein, Total 6.5 g/dL (5.8-8.1); Sodium 139 mmol/L (136-145)
[2018-12-17 20:10] LABS: CKMB 1.4 ng/mL (0-6.6)
--- NOTE | 2018-12-17 20:54 | RAD ---
PORTABLE CHEST: Date: 12-17-18 Provided Clinical History: Chest pain. FINDINGS: Comparison 11-26-18. Cardiac and mediastinal silhouette is unchanged in appearance. Median sternotomy changes are seen. Left subclavian cardiac pacing device is again seen in similar positions. Patchy ai rspace disease at the right lung base. No pleural fluid or pneumothorax apparent. IMPRESSION: Patchy right basilar airspace disease. Correlate with concerns for pneumonia. Follow up is nghia d. POS: ISABELLA
[2018-12-17 21:14] LABS: PTT 29.2 SEC (22.9-36.1); Prothrombin Time 12.9 SEC (12.0-14.7)
[2018-12-17] MEDS ORDERED: Heparin 25,000 units/D5W 500 ML ONE (21:30)
[2018-12-17] MEDS ORDERED: Heparin 1,000 UNITS/ML VIAL ONE (21:39)
[2018-12-17] MEDS ORDERED: Heparin 10,000 UNITS/ 10 ML VIAL SLOW IVP SCH (21:45)
[2018-12-18] MEDS ORDERED: Heparin 10,000 UNITS/ 10 ML VIAL SLOW IVP SCH (01:00)
[2018-12-18] MEDS ORDERED: Heparin 25,000 units/D5W 500 ML IV SCH (01:00)
[2018-12-18 01:08] VITALS: BMI 24.1
[2018-12-18 01:58] LABS: Troponin I 0.315 ng/mL (< 0.028)
[2018-12-18] MEDS: Glimepiride 4 MG TAB PO SCH (08:40)
[2018-12-18] MEDS ORDERED: Alogliptin 25 MG TAB PO SCH (09:00)
[2018-12-18] MEDS ORDERED: Aspirin 325 mg Enteric Coated Tablet PO SCH (09:00)
[2018-12-18] MEDS: Lisinopril 10 MG TAB PO SCH (09:37)
[2018-12-18] MEDS: Metoprolol Tartrate 50 MG TAB PO SCH ×2 (09:37→21:23)
[2018-12-18] MEDS ORDERED: Acetaminophen 325 MG TAB PO PRN (11:09)
[2018-12-18] MEDS ORDERED: Guaifenesin DM 100-10/5 ML UDCUP PO PRN (11:09)
[2018-12-18] MEDS ORDERED: Senokot S 8.6-50 MG TAB PO PRN (11:09)
--- NOTE | 2018-12-18 14:24 | HP ---
REASON FOR ADMISSION: Chest pain and likely nstemi. HISTORY OF PRESENTING ILLNESS: The patient gives history of having had a large meal at [employer] yesterday evening. He apparently ate a big catfish, which was baked. Soon after, the patient started to sweat profusely and developed right arm pain. He had mild chest discomfort, which he cannot describe further. No complaints of palpitations or PND. This lasted for 45 minutes and his step-daughter called EMS. He was with his family when all of this happened. He also mentions that he has had 3 prior strokes and has some trouble with swallowing, but it is far better than before. No complaints of fever, cough, or expectoration. PAST MEDICAL AND SURGICAL HISTORY: History of CVA; hypertension; history of CABG for 4-vessel disease in January of 2015; right pontomedullary junction CVA in December of 2017 with right hemiparesis, had a PEG tube placed during the same admission, which was removed later; history of dysphagia due to stroke; history of CHF with diastolic dysfunction; 2:1 AV block with a pacemaker placed in November of 2018; dyslipidemia ; diabetes mellitus, type 2. CURRENT MEDICATIONS: The patient takes, 1. Glimepiride 4 mg p.o. daily. 2. Lisinopril 10 mg p.o. daily. 3. Metformin 1000 mg p.o. twice daily. 4. Metoprolol 50 mg twice daily. 5. Protonix 40 mg p.o. daily. 6. Januvia 100 mg p.o. daily. 7. Aspirin 325 mg p.o. daily. 8. Lipitor 40 mg p.o. at bedtime. ALLERGIES: LIRAGLUTIDE. PERSONAL HISTORY: Does not abuse alcohol or drugs. No history of smoking. FAMILY HISTORY: There is history of diabetes in the family. Grandmother had unknown malignancy. REVIEW OF SYSTEMS: CONSTITUTIONAL: Negative for weight loss or gain, ability to conduct usual activities. SKIN: Negative for rash, itching. EYES: Negative for double vision, pain. ENT/MOUTH: Negative for nose bleeding, neck stiffness, pain, tenderness. CARDIOVASCULAR: Negative for palpitations, dyspnea on exertion, orthopnea. RESPIRATORY: Negative for shortness of breath, wheezing, cough, hemoptysis, fever or night sweats. GASTROINTESTINAL: Negative for poor appetite, abdominal pain, heartburn, nausea , vomiting, constipation, or diarrhea. GENITOURINARY: Negative for urgency, frequency, dysuria, nocturia. MUSCULOSKELETAL: Negative for pain, swelling. NEUROLOGIC/PSYCHIATRIC: Negative for anxiety, depression. ALLERGY/IMMUNOLOGIC: Negative for skin rash, bleeding tendency. PHYSICAL EXAMINATION: GENERAL: The patient is a 73-year-old male, who is currently not in any acute distress. VITAL SIGNS: Blood pressure 190/100 on arrival, currently 174/90. Pulse 80 per minute, respiratory rate 20 per minute, temperature 97.6 degrees Fahrenheit, and saturating 94% on room air. NECK: Supple. No elevated JVD. HEENT: Eyes; extraocular muscles intact. Pupils reacting to light. Oral cavity, mucous membranes are moist. No exudates or congestion. CARDIOVASCULAR SYSTEM: S1 and S2 heard. Regular rhythm. RESPIRATORY: Air entry 1+ bilateral. No rales or rhonchi. ABDOMEN: Soft. Bowel sounds heard. No tenderness, rigidity, or guarding. EXTREMITIES: No peripheral edema or calf tenderness. VASCULAR SYSTEM: Peripheral pulses 1+ bilateral. No ischemic ulcerations or gangrene. CENTRAL NERVOUS SYSTEM: The patient has old chronic right mild hemiparesis with strength of 4/5. Left upper and lower extremity strengths are 5/5. He has mild dysarthria, but with no other cranial nerve deficits. PSYCHIATRIC SYSTEM: The patient's mood is euthymic. No hallucinations or delusions. LABORATORY DATA: EKG done shows V-paced rhythm at 81 beats per minute and QRS duration is 160 milliseconds. H and H 15 and 44, platelet count 185, MCV is 86 , and white count of 6.6. PT, INR, and PTT within normal limits on arrival. BUN 21, creatinine 1.0, and serum glucose was 372 on arrival. Liver enzymes within normal limits. Troponin I is indeterminate, peaking up to 0.31. CK-MB 1.4. Albumin is 3.8. Chest x-ray done shows no acute cardiopulmonary abnormalities. CLINICAL IMPRESSION AND PLAN: The patient initially was admitted to [facility] for possible ACS with indeterminate troponin. The patient currently is totally asymptomatic. He describes events, which point towards likely choking event after he ate a big fish at [email or web address]. We will discontinue his heparin drip. We will continue his full-dose aspirin along with home doses of Lopressor, lisinopril, glimepiride, atorvastatin, and metformin. Dr. Mcdonald has been consulted from ER and we will await his opinion. The patient likely can be discharged home this evening if cleared by Cardiology. We will continue to closely monitor him on telemetry. He can be safely downgraded to telemetry at present. The patient's indeterminate troponin likely is due to NSTEMI. Job ID: [id number] MTDD
[2018-12-18] MEDS ORDERED: cloNIDine 0.1 MG TAB PO PRN (17:25)
[2018-12-18] MEDS ORDERED: Lorazepam 1 MG TAB PO PRN (17:25)
[2018-12-18] MEDS: metFORMIN 500 MG TAB PO SCH (17:40)
[2018-12-18] MEDS ORDERED: Communication Order-Pharmacy FS SCH (19:15)
[2018-12-18 19:59] LABS: Troponin I 0.967 ng/mL (< 0.028)
[2018-12-18] MEDS ORDERED: Atorvastatin Calcium 40 MG TAB PO SCH (21:00)
[2018-12-18] MEDS ORDERED: Enoxaparin Sodium 80 MG/0.8 ML SYRINGE SC SCH (21:00)
[2018-12-18] MEDS: Nitroglycerin 2% Ointment 1 INCH/1 GM Packet TOP SCH (21:12)
[2018-12-19] MEDS ORDERED: hydrALAZINE 20 MG/ML VIAL SLOW IVP PRN (02:51)
[2018-12-19] MEDS ORDERED: Sodium Chloride 0.9% 1,000 ML IV SCH ×2 (06:00→08:12)
[2018-12-19 06:05] LABS: #Eosinphils 0.2 thou/uL (0.0-0.7); #Lymphocytes 1.6 thou/uL (1.20-3.40); #Monocytes 0.6 thou/uL (0.11-0.59); #Neutrophils 5.5 thou/uL (1.40-6.50); %Basophils 0.2 % (0.0-1.0); %Eosinophils 2.6 % (0.0-10.0); %Lymphocytes 20.3 % (21.0-51.0); %Monocytes 7.8 % (0.0-10.0); %Neutrophils 69.1 % (42.0-75.0); Hemoglobin 15.4 g/dL (14.0-18.0); Mean Corpuscular HGB CONC 31.2 g/dL (32.0-36.0); Mean Corpuscular Hemoglobin 28.1 pg (27.0-31.0); Mean Platelet Volume 10.5 fL (7.4-10.4); Platelet Count 126 thou/uL (130-400); RBC Distribution Width 14.6 % (11.5-14.5); Red Blood Cell (RBC) Count 5.49 mill/uL (4.70-6.10)
[2018-12-19] MEDS: Nitroglycerin 2% Ointment 1 INCH/1 GM Packet TOP SCH ×2 (06:19→14:18)
[2018-12-19 06:27] LABS: Anion Gap 14 mmol/L (10-20); BUN (Urea Nitrogen) 12 mg/dL (8.4-25.7); Calc. Creatinine Clearance 92 mL/min (70-130); Calcium 9.7 mg/dL (7.8-10.44); Carbon Dioxide 22 mmol/L (23-31); Cardiac Risk 3.7 (Less than 4.5); Cholesterol 138 mg/dl (< 200 Desired); Estimated GFR-MDRD Greater than 90; Glucose 82 mg/dL (83-110); HDL Cholesterol 37 mg/dL (>60 Neg Risk); LDL Cholesterol, Calculated 77 mg/dL; Potassium 3.8 mmol/L (3.5-5.1); Triglycerides 120 mg/dL (Less than 150)
[2018-12-19] MEDS ORDERED: Heparin 10,000 UNITS/1 ML VIAL ONE (06:32)
[2018-12-19 06:42] LABS: Chloride 106 mmol/L (98-107); Sodium 138 mmol/L (136-145)
[2018-12-19] MEDS ORDERED: Nitroglycerin 4.9 GM Bottle ONE (07:06)
[2018-12-19] MEDS ORDERED: Fentanyl 100 MCG/2 ML VIAL ONE (07:06)
[2018-12-19] MEDS ORDERED: Midazolam HCl 2 mg/2 ml Vial ONE (07:06)
[2018-12-19] MEDS ORDERED: Protamine Sulfate 50 MG/5 ML VIAL ONE (07:36)
[2018-12-19] MEDS ORDERED: Ondansetron PF 4 MG/2 ML Vial ONE (07:46)
[2018-12-19] MEDS ORDERED: Acetaminophen/Codeine 30-300mg Tablet PO PRN ×2 (08:11)
[2018-12-19] MEDS ORDERED: Nitroglycerin 0.4 MG TAB (25 Tab Bottle) SL PRN (08:11)
[2018-12-19] MEDS ORDERED: Sodium Chloride 0.9% 200 ML IV PRN (08:15)
[2018-12-19] MEDS ORDERED: Enoxaparin Sodium 40 MG/0.4 ML SYRINGE SC SCH (09:00)
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
[2018-12-19] MEDS ORDERED: Iopamidol 370 76% 100 ML VIAL ONE (09:50)
[2018-12-19] MEDS ORDERED: Iopamidol 370 76% 50 ML VIAL FS ONE (09:50)
[2018-12-19] MEDS: Glimepiride 4 MG TAB PO SCH (10:27)
[2018-12-19] MEDS: Lisinopril 10 MG TAB PO SCH (10:27)
[2018-12-19] MEDS: Metoprolol Tartrate 100 MG TAB PO SCH ×2 (10:28→21:37)
[2018-12-19] MEDS: Aspirin 81 mg Enteric Coated Tablet PO SCH (10:29)
[2018-12-19] MEDS: metFORMIN 500 MG TAB PO SCH ×2 (10:42→17:16)
--- NOTE | 2018-12-19 17:15 | PDOC.PN ---
- Subjective Encounter Start Date: 12/19/18 Encounter Start Time: 14:00 Subjective: had cath this am, no chest pain or sob now - Objective Resuscitation Status - Order Detail: 12/18/18 11:09 Resuscitation Status Routine Resuscitation Status: FULL: Full Resuscitation Discussed with: POA: LAURITA Reviewed: Yes Vital Signs & Weight: Vital Signs (12 hours) Temp Pulse Resp BP BP Pulse Ox 12/19/18 15:06 97.8 F 12/19/18 10:41 97.2 F L 12/19/18 10:27 174/93 H 12/19/18 09:30 94 L 12/19/18 08:11 72 18 148/76 H 12/19/18 05:23 163/74 H Weight Weight 149 lb 7.574 oz Most Recent Monitor Data Heart Rate from ECG 60 NIBP 172/91 NIBP BP-Mean 118 Respiration from ECG 12 SpO2 96 I&O: 12/18/18 12/19/18 12/20/18 06:59 06:59 06:59 Intake Total 240 240 Output Total 410 400 200 Balance -170 -160 -200 Result Diagrams: 12/19/18 04:42 12/19/18 04:42 Additional Labs: Accuchecks 12/19/18 12/19/18 12/19/18 16:40 10:15 06:10 POC Glucose 97 133 H 101 12/18/18 20:03 POC Glucose 153 H Phys Exam - Physical Examination HEENT: PERRLA, moist MMs Neck: no JVD, supple Respiratory: no wheezing, no rales Cardiovascular: RRR, no significant murmur Gastrointestinal: soft, non-tender, positive bowel sounds Musculoskeletal: no edema, pulses present Neurological: non-focal, moves all 4 limbs Psychiatric: A&O x 3 Dx/Plan (1) Type 2 acute myocardial infarction Code(s): I21.A1 - MYOCARDIAL INFARCTION TYPE 2 Status: Acute Comment: likely demand but also has significant diffuse CAD on cath today. (2) H/O: CVA (cerebrovascular accident) Code(s): Z86.73 - PRSNL HX OF TIA (TIA), AND CEREB INFRC W/O RESID DEFICITS Status: Chronic Comment: with right mild hemiparesis and dysphagia which is improving (3) Dysphagia Code(s): R13.10 - DYSPHAGIA, UNSPECIFIED Status: Chronic Qualifiers: Dysphagia type: oropharyngeal phase Qualified Code(s): R13.12 - Dysphagia, oropharyngeal phase Comment: due to prior mulitple cva (4) CAD (coronary artery disease) Code(s): I25.10 - ATHSCL HEART DISEASE OF [place] CORONARY ARTERY W/O ANG PCTRS Status: Chronic Qualifiers: Coronary Disease-Associated Artery/Lesion type: bypass graft [place] vs. transplanted heart: [place] heart Associated angina: with stable angina Qualified Code(s): I25.708 - Atherosclerosis of coronary artery bypass graft(s) , unspecified, with other forms of angina pectoris Comment: 3 of 4 grafts are patent, has diffuse CAD on cath 12/19/2018 (5) Diabetes type 2, controlled Code(s): E11.9 - TYPE 2 DIABETES MELLITUS WITHOUT COMPLICATIONS Status: Chronic Qualifiers: Diabetes mellitus penitentiary insulin use: without penitentiary use Diabetes mellitus complication status: with unspecified complications Qualified Code(s) : E11.8 - Type 2 diabetes mellitus with unspecified complications (6) Dyslipidemia Code(s): E78.5 - HYPERLIPIDEMIA, UNSPECIFIED Status: Chronic Comment: Continue Atorvastatin. (7) Hypertension Code(s): I10 - ESSENTIAL (PRIMARY) HYPERTENSION Status: Chronic Qualifiers: Hypertension type: essential hypertension Qualified Code(s): I10 - Essential (primary) hypertension - Plan is on asp, lipitor, lopressor, lisinopril, imdur er, ranexa -: hold metformin today and tomorrow, continue glimepride and coverage for now -: hemostable -: to mobilize after post cath protocol -: speech eval for feeding consistency, dc plan per cardio adv * . Review of Systems - Medications/Allergies Allergies/Adverse Reactions: Allergies Allergy/AdvReac Type Severity Reaction Status Date / Time liraglutide [From Victoza] Allergy Severe Anaphylaxis Verified 11/22/18 22:00 Medications: Current Medications Acetaminophen (Tylenol) 650 mg PO Q4H PRN PRN Reason: Headache/Fever/Mild Pain (1-3) Acetaminophen/Codeine Phosphate (Tylenol #3) 1 tab PO Q4H PRN PRN Reason: Mild Pain (1-3) Acetaminophen/Codeine Phosphate (Tylenol #3) 2 tab PO Q4H PRN PRN Reason: Moderate Pain (4-6) Aspirin (Ecotrin) 81 mg PO DAILY VIDAL Last Admin: 05/15/19 10:29 Dose: 81 mg Atorvastatin Calcium (Lipitor) 80 mg PO HS [facility] Clonidine (Catapres) 0.1 mg PO Q4H PRN PRN Reason: sbp>180 Glimepiride (Amaryl) 4 mg PO QAM[facility] Last Admin: 12/19/18 10:27 Dose: 4 mg Guaifenesin/Dextromethorphan (Robitussin Dm) 15 ml PO Q4H PRN PRN Reason: Cough Hydralazine HCl (Apresoline) 10 mg SLOW IVP Q4H PRN PRN Reason: SBP>170, DBP>100 Last Admin: 12/19/18 03:14 Dose: 10 mg Sodium Chloride (Normal Saline 0.9%) 200 mls @ 0 mls/hr IV 0815 PRN PRN Reason: SBP < 90 Isosorbide Mononitrate (Imdur Er) 30 mg PO DAILY [facility] Last Admin: 12/19/18 10:28 Dose: 30 mg Lisinopril (Zestril) 10 mg PO DAILY [facility] Last Admin: 12/19/18 10:27 Dose: 10 mg Lorazepam (Ativan) 1 mg PO Q4H PRN PRN Reason: Anxiety/Agitation Metformin HCl (Glucophage) [facility] Last Admin: 12/19/18 10:42 Dose: 1,000 mg Metoprolol Tartrate (Lopressor) 100 mg PO BID [facility] Last Admin: 12/19/18 10:28 Dose: 100 mg Nitroglycerin (Nitro-Bid 2% Ointment) 0.5 inch TOP Q8HR [facility] Last Admin: 12/19/18 14:18 Dose: Not Given Nitroglycerin (Nitrostat) 0.4 mg SL Q5MIN PRN PRN Reason: Chest Pain Pantoprazole Sodium (Protonix) 40 mg PO DAILY [facility] Last Admin: 12/19/18 10:27 Dose: 40 mg Ranolazine (Ranexa) 500 mg PO BID [facility] Last Admin: 12/19/18 10:28 Dose: 500 mg Senna/Docusate Sodium (Senokot S) 2 tab PO BID PRN PRN Reason: Constipation Sodium Chloride (Flush - Normal Saline) 10 ml IVF Q12HR [facility] Last Admin: 12/19/18 10:30 Dose: 10 ml Sodium Chloride (Flush - Normal Saline) 10 ml IVF PRN PRN PRN Reason: Saline Flush
[2018-12-19] MEDS: Atorvastatin Calcium 40 MG TAB PO SCH (21:37)
[2018-12-20] MEDS ORDERED: Ondansetron PF 4 MG/2 ML Vial SLOW IVP PRN (02:20)
[2018-12-20] MEDS: Glimepiride 4 MG TAB PO SCH (08:24)
[2018-12-20] MEDS: Aspirin 81 mg Enteric Coated Tablet PO SCH (08:24)
[2018-12-20] MEDS: Metoprolol Tartrate 100 MG TAB PO SCH ×2 (08:24→20:58)
[2018-12-20] MEDS: Lisinopril 10 MG TAB PO SCH (08:24)
[2018-12-20] MEDS: metFORMIN 500 MG TAB PO SCH ×2 (08:24→17:17)
--- NOTE | 2018-12-20 13:29 | PDOC.PN ---
- Subjective Encounter Start Date: 12/20/18 Encounter Start Time: 12:15 Subjective: no chest pain or sob -: felt nauseous this am, no abd pain -: no bm x 3 days now - Objective Resuscitation Status - Order Detail: 12/18/18 11:09 Resuscitation Status Routine Resuscitation Status: FULL: Full Resuscitation Discussed with: POA: LAURITA Reviewed: Yes Vital Signs & Weight: Vital Signs (12 hours) Temp Pulse Resp BP BP Pulse Ox 12/20/18 12:00 142/77 H 12/20/18 11:07 97.7 F 12/20/18 08:24 174/93 H 12/20/18 08:11 65 16 162/77 H 96 12/20/18 08:00 94 L 12/20/18 07:16 98.4 F 12/20/18 04:13 98.2 F 12/20/18 04:00 60 12 163/77 H 96 Weight Weight 149 lb 7.574 oz Most Recent Monitor Data Heart Rate from ECG 65 NIBP 172/91 NIBP BP-Mean 118 Respiration from ECG 6 SpO2 96 I&O: 12/19/18 12/20/18 12/21/18 06:59 06:59 06:59 Intake Total 240 480 Output Total 400 700 300 Balance -160 -220 -300 Result Diagrams: 12/19/18 04:42 12/19/18 04:42 Additional Labs: Accuchecks 12/20/18 12/20/18 12/19/18 10:38 06:03 20:24 POC Glucose 156 H 192 H 61 L 12/19/18 16:40 POC Glucose 97 Phys Exam - Physical Examination HEENT: PERRLA, moist MMs Neck: no JVD, supple Respiratory: no wheezing, no rales Cardiovascular: RRR, no significant murmur Gastrointestinal: soft, non-tender, positive bowel sounds no rigidity or guarding, cath groin site is clean Musculoskeletal: no edema, pulses present Neurological: non-focal, moves all 4 limbs Psychiatric: normal affect, A&O x 3 Dx/Plan (1) NSTEMI (non-ST elevated myocardial infarction) Code(s): I21.4 - NON-ST ELEVATION (NSTEMI) MYOCARDIAL INFARCTION Status: Acute Comment: type 1 (2) H/O: CVA (cerebrovascular accident) Code(s): Z86.73 - PRSNL HX OF TIA (TIA), AND CEREB INFRC W/O RESID DEFICITS Status: Chronic Comment: with right mild hemiparesis and dysphagia which is improving (3) Dysphagia Code(s): R13.10 - DYSPHAGIA, UNSPECIFIED Status: Chronic Qualifiers: Dysphagia type: oropharyngeal phase Qualified Code(s): R13.12 - Dysphagia, oropharyngeal phase Comment: due to prior mulitple cva (4) CAD (coronary artery disease) Code(s): I25.10 - ATHSCL HEART DISEASE OF [place] CORONARY ARTERY W/O ANG PCTRS Status: Chronic Qualifiers: Coronary Disease-Associated Artery/Lesion type: bypass graft [place] vs. transplanted heart: [place] heart Associated angina: with stable angina Qualified Code(s): I25.708 - Atherosclerosis of coronary artery bypass graft(s) , unspecified, with other forms of angina pectoris Comment: 3 of 4 grafts are patent, has diffuse CAD on cath 12/19/2018 (5) Diabetes type 2, controlled Code(s): E11.9 - TYPE 2 DIABETES MELLITUS WITHOUT COMPLICATIONS Status: Chronic Qualifiers: Diabetes mellitus care home insulin use: without care home use Diabetes mellitus complication status: with unspecified complications Qualified Code(s) : E11.8 - Type 2 diabetes mellitus with unspecified complications (6) Dyslipidemia Code(s): E78.5 - HYPERLIPIDEMIA, UNSPECIFIED Status: Chronic Comment: Continue Atorvastatin. (7) Hypertension Code(s): I10 - ESSENTIAL (PRIMARY) HYPERTENSION Status: Chronic Qualifiers: Hypertension type: essential hypertension Qualified Code(s): I10 - Essential (primary) hypertension - Plan hemostable, low dose xarelto -: continue asp, lipitorm imdur er, ranexa, lopressor and lisinopril -: dulcolax sup/fleets enema x1 -: hold dm meds if he doesn't eat, CT abd if nausea persists -: will f/u * . Review of Systems - Medications/Allergies Allergies/Adverse Reactions: Allergies Allergy/AdvReac Type Severity Reaction Status Date / Time liraglutide [From Victoza] Allergy Severe Anaphylaxis Verified 11/22/18 22:00 Medications: Current Medications Acetaminophen (Tylenol) 650 mg PO Q4H PRN PRN Reason: Headache/Fever/Mild Pain (1-3) Acetaminophen/Codeine Phosphate (Tylenol #3) 1 tab PO Q4H PRN PRN Reason: Mild Pain (1-3) Acetaminophen/Codeine Phosphate (Tylenol #3) 2 tab PO Q4H PRN PRN Reason: Moderate Pain (4-6) Aspirin (Ecotrin) 81 mg PO DAILY [facility] Last Admin: 12/20/18 08:24 Dose: 81 mg Atorvastatin Calcium (Lipitor) 80 mg PO HS [facility] Last Admin: 12/19/18 21:37 Dose: 80 mg Clonidine (Catapres) 0.1 mg PO Q4H PRN PRN Reason: sbp>180 Glimepiride (Amaryl) 4 mg PO QAM[facility] Last Admin: 12/20/18 08:24 Dose: 4 mg Guaifenesin/Dextromethorphan (Robitussin Dm) 15 ml PO Q4H PRN PRN Reason: Cough Hydralazine HCl (Apresoline) 10 mg SLOW IVP Q4H PRN PRN Reason: SBP>170, DBP>100 Last Admin: 12/19/18 03:14 Dose: 10 mg Sodium Chloride (Normal Saline 0.9%) 200 mls @ 0 mls/hr IV 0815 PRN PRN Reason: SBP < 90 Isosorbide Mononitrate (Imdur Er) 30 mg PO DAILY [facility] Last Admin: 12/20/18 08:26 Dose: 30 mg Lisinopril (Zestril) 10 mg PO DAILY [facility] Last Admin: 12/20/18 08:24 Dose: 10 mg Lorazepam (Ativan) 1 mg PO Q4H PRN PRN Reason: Anxiety/Agitation Metformin [facility] (Glucophage) [facility] Last Admin: 12/20/18 08:24 Dose: 1,000 mg Metoprolol Tartrate (Lopressor) 100 mg PO BID [facility] Last Admin: 12/20/18 08:24 Dose: 100 mg Nitroglycerin (Nitrostat) 0.4 mg SL Q5MIN PRN PRN Reason: Chest Pain Ondansetron HCl (Zofran) 4 mg SLOW IVP Q6H PRN PRN Reason: Nausea/Vomiting Last Admin: 12/20/18 02:40 Dose: 4 mg Pantoprazole Sodium (Protonix) 40 mg PO DAILY [facility] Last Admin: 12/20/18 08:24 Dose: 40 mg Ranolazine (Ranexa) 500 mg PO BID [facility] Last Admin: 12/20/18 08:24 Dose: 500 mg Rivaroxaban (Xarelto) 2.5 mg PO BID [facility] Senna/Docusate Sodium (Senokot S) 2 tab PO BID PRN PRN Reason: Constipation Sodium Chloride (Flush - Normal Saline) 10 ml IVF Q12HR [facility] Last Admin: 12/20/18 08:24 Dose: 10 ml Sodium Chloride (Flush - Normal Saline) 10 ml IVF PRN PRN PRN Reason: Saline Flush
[2018-12-20 14:26] LABS: #Eosinphils 0.1 thou/uL (0.0-0.7); #Lymphocytes 1.5 thou/uL (1.20-3.40); #Monocytes 0.9 thou/uL (0.11-0.59); %Basophils 0.3 % (0.0-1.0); %Eosinophils 0.5 % (0.0-10.0); %Lymphocytes 12.3 % (21.0-51.0); %Monocytes 6.9 % (0.0-10.0); Mean Corpuscular HGB CONC 33.7 g/dL (32.0-36.0); Mean Corpuscular Hemoglobin 28.9 pg (27.0-31.0); Mean Corpuscular Volume 85.7 fL (78.0-98.0); Mean Platelet Volume 8.5 fL (7.4-10.4); Platelet Count 176 thou/uL (130-400); RBC Distribution Width 14.2 % (11.5-14.5); Red Blood Cell (RBC) Count 5.19 mill/uL (4.70-6.10); White Blood Cell (WBC) Count 12.5 thou/uL (4.8-10.8)
[2018-12-20 14:44] LABS: Anion Gap 12 mmol/L (10-20); BUN (Urea Nitrogen) 19 mg/dL (8.4-25.7); Calc. Creatinine Clearance 65 mL/min (70-130); Calcium 9.6 mg/dL (7.8-10.44); Carbon Dioxide 28 mmol/L (23-31); Chloride 103 mmol/L (98-107); Estimated GFR-MDRD 74; Glucose 129 mg/dL (83-110); Potassium 4.1 mmol/L (3.5-5.1); Sodium 139 mmol/L (136-145)
[2018-12-20] MEDS ORDERED: Rivaroxaban 15 MG TAB PO SCH (21:00)
[2018-12-20] MEDS: Atorvastatin Calcium 40 MG TAB PO SCH (21:01)
[2018-12-20] MEDS: Rivaroxaban 10 MG TAB PO SCH (21:01)
[2018-12-21 05:09] LABS: #Eosinphils 0.1 thou/uL (0.0-0.7); #Lymphocytes 1.7 thou/uL (1.20-3.40); #Monocytes 0.8 thou/uL (0.11-0.59); #Neutrophils 6.1 thou/uL (1.40-6.50); %Basophils 0.5 % (0.0-1.0); %Eosinophils 1.3 % (0.0-10.0); %Lymphocytes 18.9 % (21.0-51.0); %Monocytes 9.4 % (0.0-10.0); %Neutrophils 69.8 % (42.0-75.0); Hemoglobin 14.2 g/dL (14.0-18.0); Mean Corpuscular HGB CONC 32.7 g/dL (32.0-36.0); Mean Corpuscular Hemoglobin 28.2 pg (27.0-31.0); Mean Corpuscular Volume 86.4 fL (78.0-98.0); Mean Platelet Volume 8.4 fL (7.4-10.4); Platelet Count 167 thou/uL (130-400); RBC Distribution Width 14.1 % (11.5-14.5); Red Blood Cell (RBC) Count 5.05 mill/uL (4.70-6.10); White Blood Cell (WBC) Count 8.8 thou/uL (4.8-10.8)
[2018-12-21 05:31] LABS: Anion Gap 12 mmol/L (10-20); BUN (Urea Nitrogen) 23 mg/dL (8.4-25.7); Calc. Creatinine Clearance 66 mL/min (70-130); Calcium 9.5 mg/dL (7.8-10.44); Carbon Dioxide 28 mmol/L (23-31); Chloride 102 mmol/L (98-107); Estimated GFR-MDRD 75; Potassium 3.6 mmol/L (3.5-5.1); Sodium 138 mmol/L (136-145)
[2018-12-21 05:34] LABS: Glucose 51 mg/dL (83-110)
[2018-12-21] MEDS ORDERED: metFORMIN 500 MG TAB PO SCH (08:00)
[2018-12-21] MEDS: Metoprolol Tartrate 100 MG TAB PO SCH (08:45)
[2018-12-21] MEDS: Aspirin 81 mg Enteric Coated Tablet PO SCH (08:45)
[2018-12-21] MEDS: Lisinopril 10 MG TAB PO SCH (08:45)
[2018-12-21] MEDS: Rivaroxaban 10 MG TAB PO SCH (08:46)
[2018-12-21] MEDS ORDERED: Bisacodyl 10 MG SUPP PR PRN (12:47)
--- NOTE | 2018-12-21 12:49 | PDOC.PN ---
- Subjective Encounter Start Date: 12/21/18 Encounter Start Time: 10:00 Subjective: no nausea or abd pain this am -: has not had bm x4 days -: no chest pain or sob - Objective Resuscitation Status - Order Detail: 12/18/18 11:09 Resuscitation Status Routine Resuscitation Status: FULL: Full Resuscitation Discussed with: POA: LAURITA Reviewed: Yes Vital Signs & Weight: Vital Signs (12 hours) Temp Pulse Resp BP BP Pulse Ox 12/21/18 11:45 97.4 F L 68 16 139/70 100 12/21/18 08:15 97.5 F L 61 12 182/85 H 99 12/21/18 05:54 94 L 12/21/18 04:04 97.5 F L 64 16 169/74 H 94 L Weight Weight 144 lb Most Recent Monitor Data Heart Rate from ECG 60 NIBP 172/91 NIBP BP-Mean 118 Respiration from ECG 18 SpO2 96 I&O: 12/20/18 12/21/18 12/22/18 06:59 06:59 06:59 Intake Total 480 240 Output Total 700 800 Balance -220 -560 Result Diagrams: 12/21/18 04:46 12/21/18 04:46 Additional Labs: Accuchecks 12/21/18 12/21/18 12/21/18 11:03 06:33 05:22 POC Glucose 197 H 142 H 56 L* 12/20/18 12/20/18 20:17 16:35 POC Glucose 103 93 Phys Exam - Physical Examination HEENT: PERRLA, moist MMs Neck: no JVD, supple Respiratory: no wheezing, no rales Cardiovascular: RRR, no significant murmur Gastrointestinal: soft, non-tender, positive bowel sounds Musculoskeletal: no edema, pulses present Neurological: non-focal, moves all 4 limbs mild right hemiparesis-chronic Psychiatric: normal affect, A&O x 3 Dx/Plan (1) NSTEMI (non-ST elevated myocardial infarction) Code(s): I21.4 - NON-ST ELEVATION (NSTEMI) MYOCARDIAL INFARCTION Status: Acute Comment: type 1 (2) H/O: CVA (cerebrovascular accident) Code(s): Z86.73 - PRSNL HX OF TIA (TIA), AND CEREB INFRC W/O RESID DEFICITS Status: Chronic Comment: with right mild hemiparesis and dysphagia which is improving (3) Dysphagia Code(s): R13.10 - DYSPHAGIA, UNSPECIFIED Status: Chronic Qualifiers: Dysphagia type: oropharyngeal phase Qualified Code(s): R13.12 - Dysphagia, oropharyngeal phase Comment: due to prior mulitple cva (4) CAD (coronary artery disease) Code(s): I25.10 - ATHSCL HEART DISEASE OF [place] CORONARY ARTERY W/O ANG PCTRS Status: Chronic Qualifiers: Coronary Disease-Associated Artery/Lesion type: bypass graft [place] vs. transplanted heart: [place] heart Associated angina: with stable angina Qualified Code(s): I25.708 - Atherosclerosis of coronary artery bypass graft(s) , unspecified, with other forms of angina pectoris Comment: 3 of 4 grafts are patent, has diffuse CAD on cath 12/19/2018 (5) Diabetes type 2, controlled Code(s): E11.9 - TYPE 2 DIABETES MELLITUS WITHOUT COMPLICATIONS Status: Chronic Qualifiers: Diabetes mellitus exterminator helper insulin use: without exterminator helper use Diabetes mellitus complication status: with unspecified complications Qualified Code(s) : E11.8 - Type 2 diabetes mellitus with unspecified complications (6) Dyslipidemia Code(s): E78.5 - HYPERLIPIDEMIA, UNSPECIFIED Status: Chronic Comment: Continue Atorvastatin. (7) Hypertension Code(s): I10 - ESSENTIAL (PRIMARY) HYPERTENSION Status: Chronic Qualifiers: Hypertension type: essential hypertension Qualified Code(s): I10 - Essential (primary) hypertension - Plan meds are being optimized by , dc plan per cardio adv -: cardiac rehab to ambulate pt as tolerated, has not gotten up after cath per -: -pt, dulcolax suppository if needed give fleets enema x1 -: is on low dose xarelto, asp, lipitor, imdur, ranexa, lopressor, lisinopril -: hold dm meds until fingerstick glucose is >200mg x2 * . Review of Systems - Medications/Allergies Allergies/Adverse Reactions: Allergies Allergy/AdvReac Type Severity Reaction Status Date / Time liraglutide [From Victoza] Allergy Severe Anaphylaxis Verified 11/22/18 22:00 Medications: Current Medications Acetaminophen (Tylenol) 650 mg PO Q4H PRN PRN Reason: Headache/Fever/Mild Pain (1-3) Acetaminophen/Codeine Phosphate (Tylenol #3) 1 tab PO Q4H PRN PRN Reason: Mild Pain (1-3) Acetaminophen/Codeine Phosphate (Tylenol #3) 2 tab PO Q4H PRN PRN Reason: Moderate Pain (4-6) Aspirin (Ecotrin) 81 mg PO DAILY [facility] Last Admin: 12/21/18 08:45 Dose: 81 mg Atorvastatin Calcium (Lipitor) 80 mg PO HS [facility] Last Admin: 12/20/18 21:01 Dose: 80 mg Bisacodyl (Dulcolax) 10 mg NC Q8H PRN PRN Reason: Constipation Clonidine (Catapres) 0.1 mg PO Q4H PRN PRN Reason: sbp>180 Guaifenesin/Dextromethorphan (Robitussin Dm) 15 ml PO Q4H PRN PRN Reason: Cough Hydralazine HCl (Apresoline) 10 mg SLOW IVP Q4H PRN PRN Reason: SBP>170, DBP>100 Last Admin: 12/19/18 03:14 Dose: 10 mg Sodium Chloride (Normal Saline 0.9%) 200 mls @ 0 mls/hr IV 0815 PRN PRN Reason: SBP < 90 Isosorbide Mononitrate (Imdur Er) 30 mg PO DAILY [facility] Last Admin: 12/21/18 08:45 Dose: 30 mg Lisinopril (Zestril) 10 mg PO DAILY [facility] Last Admin: 12/21/18 08:45 Dose: 10 mg Lorazepam (Ativan) 1 mg PO Q4H PRN PRN Reason: Anxiety/Agitation Metformin HCl (Glucophage) 500 mg PO BID[facility] Last Admin: 12/21/18 08:45 Dose: 500 mg Metoprolol Tartrate (Lopressor) 100 mg PO BID [facility] Last Admin: 12/21/18 08:45 Dose: 100 mg Nitroglycerin (Nitrostat) 0.4 mg SL Q5MIN PRN PRN Reason: Chest Pain Ondansetron HCl (Zofran) 4 mg SLOW IVP Q6H PRN PRN Reason: Nausea/Vomiting Last Admin: 12/20/18 02:40 Dose: 4 mg Pantoprazole Sodium (Protonix) 40 mg PO DAILY [facility] Last Admin: 12/21/18 08:45 Dose: 40 mg Ranolazine (Ranexa) 500 mg PO BID [facility] Last Admin: 12/21/18 08:46 Dose: 500 mg Rivaroxaban (Xarelto) 2.5 mg PO BID [facility] Last Admin: 12/21/18 08:46 Dose: 2.5 mg Senna/Docusate Sodium (Senokot S) 2 tab PO BID PRN PRN Reason: Constipation Sodium Biphosphate/Sodium Phosphate (Fleet Enema) 133 ml NC NOW VIDAL Stop: 12/21/18 16:00 Sodium Chloride (Flush - Normal Saline) 10 ml IVF Q12HR [facility] Last Admin: 12/21/18 08:47 Dose: 10 ml Sodium Chloride (Flush - Normal Saline) 10 ml IVF PRN PRN PRN Reason: Saline Flush
[2018-12-21] MEDS ORDERED: Fleet Enema 133 ML BOT PR SCH (13:00)
[2018-12-21 16:15] VITALS: BP 164/87; TEMP 97.6
--- NOTE | 2018-12-21 17:59 | DIS ---
DATE OF ADMISSION: 12/17/2018 DATE OF DISCHARGE: 12/21/2018 DISCHARGE DISPOSITION: To home. PRIMARY DISCHARGE DIAGNOSIS: [id number] myocardial infarction. SECONDARY DISCHARGE DIAGNOSES: History of cerebrovascular accident with mild right hemiparesis and dysphagia, which is slowly improving; coronary artery disease, for medical management; diabetes mellitus, type 2; dyslipidemia; hypertension. PROCEDURES DONE DURING HOSPITALIZATION: The patient has had cardiac catheterization done by Dr. Mcdonald on 12/19/2018, which showed left main and three-vessel coronary artery disease, severe diffuse disease. Three of four bypass grafts were patent. Mildly impaired ventricular function. Ejection fraction by LV-gram was 55%. H and H 14 and 43, platelet count 167, MCV is 86, white count of 8. Discharge BUN and creatinine are 23 and 0.9. Total cholesterol 138, triglycerides 120, LDL 77, HDL 37. Troponin I was indeterminate, peaking up to 0.96. CK-MB 1.4. Albumin is 3.8. Chest x-ray on the day of admission showed questionable patchy airspace disease in the right lung base. No pleural fluid or pneumothorax. DISCHARGE MEDICATIONS: 1. Lisinopril 10 mg daily. 2. Protonix 40 mg daily. 3. Aspirin 81 mg p.o. daily. 4. Lipitor 40 mg p.o. q.h.s. 5. Imdur extended release 30 mg p.o. daily. 6. Metformin 500 mg p.o. twice daily. 7. Lopressor 100 mg twice daily. 8. Ranexa 1000 mg p.o. twice daily. 9. Xarelto 2.5 mg p.o. twice daily for diffuse coronary artery disease. 10. Claritin 10 mg daily. ALLERGIES: TO LIRAGLUTIDE. INPATIENT CONSULT: Dr. Mcdonald for Cardiology. DISCHARGE PLAN: The patient to follow up with Dr. Mcdonald as advised and primary care physician in 1 week. BRIEF COURSE DURING HOSPITALIZATION: The patient initially was brought to emergency room after he developed chest pain, and this apparently started after having a heavy meal. He has had indeterminate troponin on arrival. The patient was initially admitted to [facility] on heparin drip in view of prior cardiac disease including prior CABG. He has had consultation with Dr. Mcdonald. The patient has had coronary angiogram done. He has diffuse disease and 3 out of 4 grafts are patent. The patient was for medical management. His medications were optimized during his stay here. He has remained hemodynamically stable. He has been cleared by Dr. Mcdonald for discharge. Please note the patient is on a small dose of Xarelto for diffuse coronary artery disease at 2.5 mg twice daily. He needs to follow up with Dr. Mcdonald as advised and primary care physician in 1 week. Please see a face-to- face documentation for the day of discharge on [employer]. Also please note the patient has mild dysphagia from his prior strokes, and it has improved a lot, and the patient and family would like to be on his regular consistency diet. Please see a [id number] documentation for the day of discharge on [employer]. Job ID: [id number] MTDD
--- NOTE | 2018-12-22 11:08 | EKG ---
Test Reason : Blood Pressure : / mmHG Vent. Rate : 081 BPM Atrial Rate : 081 BPM P-R Int : 202 ms QRS Dur : 160 ms QT Int : 434 ms P-R-T Axes : 008 -77 094 degrees QTc Int : 504 ms Atrial-sensed ventricular-paced rhythm Abnormal ECG Confirmed by HERMINIA PETERS M.D. ([id number]), news video editor DEDRA SALGADO ([id number]) on 12/22/2018 11:08:17 AM Referred By: Confirmed By:HERMINIA PETERS M.D.
== END 2018-12-21 16:57 | disposition home or self-care (01) | DRG 281 ==
LOC: ERS 18:48 → OBSVTOIN 20:45 → ERHOLD 20:45 → IMCU/EMU 12-18 00:42 → 2NO 12-20 19:10
PROVIDERS: ADMIT Hospitalist; ATTEND Hospitalist
PROC: 4A023N7 Measurement of Cardiac Sampling and Pressure, Left Heart, Percutaneous Approach (ICD-10-PCS; principal; 2018-12-19)
PROC: B2151ZZ Fluoroscopy of Left Heart using Low Osmolar Contrast (ICD-10-PCS; 2018-12-19)
PROC: B2131ZZ Fluoroscopy of Multiple Coronary Artery Bypass Grafts using Low Osmolar Contrast (ICD-10-PCS; 2018-12-19)
PROC: B2111ZZ Fluoroscopy of Multiple Coronary Arteries using Low Osmolar Contrast (ICD-10-PCS; 2018-12-19)
PROC: B2181ZZ Fluoroscopy of Left Internal Mammary Bypass Graft using Low Osmolar Contrast (ICD-10-PCS; 2018-12-19)
DX: I21.4 Non-ST elevation (NSTEMI) myocardial infarction (principal); I50.32 Chronic diastolic (congestive) heart failure; I69.351 Hemiplegia and hemiparesis following cerebral infarction affecting right dominant side; E78.00 Pure hypercholesterolemia, unspecified; I11.0 Hypertensive heart disease with heart failure; I44.30 Unspecified atrioventricular block; R13.12 Dysphagia, oropharyngeal phase; F41.9 Anxiety disorder, unspecified; R13.10 Dysphagia, unspecified; I25.10 Atherosclerotic heart disease of native coronary artery without angina pectoris; Z95.1 Presence of aortocoronary bypass graft; Z88.8 Allergy status to other drugs, medicaments and biological substances; Z95.0 Presence of cardiac pacemaker; Z79.84 Long term (current) use of oral hypoglycemic drugs; Z79.82 Long term (current) use of aspirin; Z79.899 Other long term (current) drug therapy; I69.391 Dysphagia following cerebral infarction
CPT/HCPCS: 36415; 36416; 71045; 80048; 80053; 80061; 82550; 82553; 84484; 85025; 85347; 85610; 85730; 86850; 86900; 86901; 93005; 93459; 93798; 94760; 96365; 96375; 99152; 99153; C1769; J0360; J1644; J1650; J2250; J2405; J2720; J3010; Q9967

== ENCOUNTER 2019-06-27 18:19 | Inpatient (IN) | payer MEDICARE ==
[2019-06-27] MEDS ORDERED: Fentanyl 100 MCG/2 ML VIAL ONE (18:26)
[2019-06-27] MEDS ORDERED: Ondansetron PF 4 MG/2 ML Vial ONE ×2 (18:41→19:01)
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
[2019-06-27 18:43] LABS: #Eosinphils 0.3 thou/uL (0.0-0.7); #Monocytes 0.7 thou/uL (0.11-0.59); #Neutrophils 4.7 thou/uL (1.40-6.50); %Basophils 0.1 % (0.0-1.0); %Eosinophils 3.7 % (0.0-10.0); %Lymphocytes 26.1 % (21.0-51.0); %Monocytes 8.7 % (0.0-10.0); %Neutrophils 61.3 % (42.0-75.0); Hemoglobin 13.4 g/dL (14.0-18.0); Mean Corpuscular HGB CONC 33.4 g/dL (32.0-36.0); Mean Corpuscular Hemoglobin 29.8 pg (27.0-31.0); Mean Corpuscular Volume 89.2 fL (78.0-98.0); Mean Platelet Volume 8.7 fL (7.4-10.4); Platelet Count 183 thou/uL (130-400); RBC Distribution Width 15.2 % (11.5-14.5); Red Blood Cell (RBC) Count 4.49 mill/uL (4.70-6.10); White Blood Cell (WBC) Count 7.6 thou/uL (4.8-10.8)
[2019-06-27 18:50] LABS: INR-International Normal Ratio 0.9; PTT 27.9 SEC (22.9-36.1); Prothrombin Time 12.2 SEC (12.0-14.7)
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
[2019-06-27] MEDS ORDERED: Naloxone HCl 0.4 mg/ml Vial ONE (18:53)
[2019-06-27] MEDS ORDERED: Promethazine HCl 25 MG/ML VIAL ONE ×2 (19:06→19:54)
[2019-06-27 19:22] LABS: ALT (SGPT) 16 U/L (8-55); AST (SGOT) 16 U/L (5-34); Acetaminophen Less than 6.0 mcg/mL (10.0-30.0); Albumin 3.8 g/dL (3.4-4.8); Alcohol Less than 10 mg/dL (Less than 10); Alkaline Phosphatase 97 U/L (40-110); Anion Gap 12 mmol/L (10-20); BUN (Urea Nitrogen) 26 mg/dL (8.4-25.7); Bilirubin, Total 0.5 mg/dL (0.2-1.2); Calc. Creatinine Clearance 0 mL/min (70-130); Calcium 9.2 mg/dL (7.8-10.44); Carbon Dioxide 25 mmol/L (23-31); Chloride 106 mmol/L (98-107); Estimated GFR-MDRD 69; Glucose 169 mg/dL (83-110); Lipase 33 U/L (8-78); Potassium 3.9 mmol/L (3.5-5.1); Protein, Total 6.8 g/dL (5.8-8.1); Salicylate Less than 8.0 mg/dL (15.0-30.0); Sodium 139 mmol/L (136-145)
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
[2019-06-27] MEDS ORDERED: Dextrose 5% in Water 1,000 ML IV PRN (20:30)
[2019-06-27] MEDS ORDERED: Dextrose 50% Abboject 50 ML SYRINGE SLOW IVP PRN (20:30)
[2019-06-27] MEDS ORDERED: Ondansetron ODT 4 MG TAB PO PRN (20:30)
[2019-06-27] MEDS ORDERED: Ondansetron PF 4 MG/2 ML Vial IVP PRN (20:30)
[2019-06-27] MEDS ORDERED: Morphine 2 MG/ML SYRINGE SLOW IVP PRN (20:30)
[2019-06-27 20:34] LABS: Phosphorus 2.5 mg/dL (2.3-4.7)
[2019-06-27] MEDS ORDERED: traMADol HCl 50 MG TAB PO PRN ×2 (20:41)
[2019-06-27] MEDS ORDERED: Potassium Phosphate 15 MMOL in Sodium Chloride 0.9% 250 ML 100 ML IVPB SCH (20:45)
[2019-06-27] MEDS ORDERED: Insulin Regular 300 UNITS/3 ML VIAL SC PRN (20:49)
[2019-06-27] MEDS ORDERED: Magnesium 2 GM/50 ML 2 GM in Premix Bag 1 BAG IVPB SCH (21:00)
[2019-06-27] MEDS ORDERED: Potassium Phosphate 15 MMOL in Sodium Chloride 0.9% 100 ML IVPB SCH (21:30)
[2019-06-27] MEDS ORDERED: Sodium Chloride 0.9% 1,000 ML IV SCH (23:59)
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
[2019-06-28 00:40] LABS: Amphetamine Not Detected (NotDetected); Barbiturates Screen Not Detected (NotDetected); Benzodiazepine Screen Not Detected (NotDetected); Cocaine Metabolite Screen Not Detected (NotDetected); Medtox Control Line Valid? VALID (VALID); Medtox Reader # READER 4; Methadone Not Detected (NotDetected); Methamphetamine Not Detected (NotDetected); Opiate Screen Not Detected (NotDetected); Oxycodone Screen Not Detected (NotDetected); Phencyclidine (PCP) Not Detected (NotDetected); THC/Cannabinoid Screen Not Detected (NotDetected); Tricyclic Screen Not Detected (NotDetected)
[2019-06-28] MEDS: Ibuprofen 600 MG TAB PO SCH ×4 (01:19→21:11)
[2019-06-28] MEDS: Famotidine/PF 20 mg/2ml Vial SLOW IVP SCH ×2 (01:19→16:08)
[2019-06-28] MEDS: Senokot S 8.6-50 MG TAB PO SCH ×3 (01:20→20:43)
[2019-06-28] MEDS: Acetaminophen 1,000 MG in Premix Bag 1 BAG IVPB SCH ×3 (01:28→16:05)
[2019-06-28] MEDS: hydrALAZINE 20 MG/ML VIAL SLOW IVP PRN ×2 (01:41→05:20)
[2019-06-28 01:49] VITALS: BMI 22.8
[2019-06-28 06:21] LABS: #Eosinphils 0.1 thou/uL (0.0-0.7); #Lymphocytes 1.4 thou/uL (1.20-3.40); #Monocytes 0.7 thou/uL (0.11-0.59); #Neutrophils 6.1 thou/uL (1.40-6.50); %Basophils 0.2 % (0.0-1.0); %Eosinophils 1.1 % (0.0-10.0); %Lymphocytes 16.4 % (21.0-51.0); %Monocytes 8.2 % (0.0-10.0); Hemoglobin 12.7 g/dL (14.0-18.0); Mean Corpuscular HGB CONC 32.4 g/dL (32.0-36.0); Mean Corpuscular Hemoglobin 29.1 pg (27.0-31.0); Mean Corpuscular Volume 89.8 fL (78.0-98.0); Mean Platelet Volume 8.6 fL (7.4-10.4); Platelet Count 178 thou/uL (130-400); Red Blood Cell (RBC) Count 4.38 mill/uL (4.70-6.10); White Blood Cell (WBC) Count 8.2 thou/uL (4.8-10.8)
[2019-06-28 06:33] LABS: Phosphorus 2.8 mg/dL (2.3-4.7)
[2019-06-28 06:34] LABS: Anion Gap 11 mmol/L (10-20); BUN (Urea Nitrogen) 21 mg/dL (8.4-25.7); Calc. Creatinine Clearance 75 mL/min (70-130); Calcium 8.8 mg/dL (7.8-10.44); Carbon Dioxide 24 mmol/L (23-31); Chloride 109 mmol/L (98-107); Estimated GFR-MDRD Greater than 90; Glucose 144 mg/dL (83-110); Magnesium 1.6 mg/dL (1.6-2.6); Potassium 4.1 mmol/L (3.5-5.1); Sodium 140 mmol/L (136-145)
[2019-06-28] MEDS ORDERED: CEFAZOLIN 2 GM in Premix Bag 1 BAG IVPB SCH (07:15)
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
[2019-06-28] MEDS ORDERED: PHOS-NAK 1 PKT PACK PO SCH (07:45)
[2019-06-28] MEDS ORDERED: Magnesium 2 GM/50 ML 2 GM in Premix Bag 1 BAG IVPB SCH (07:45)
[2019-06-28] MEDS: Metoprolol Tartrate 100 MG TAB PO SCH ×2 (08:48→21:11)
[2019-06-28] MEDS ORDERED: Lisinopril 20 MG TAB PO SCH (09:00)
[2019-06-28] MEDS ORDERED: FLU VACC TS2019-20(65YR UP)/PF 180 MCG/0.5 ML SYRINGE IM ONE (09:00)
[2019-06-28] MEDS ORDERED: Ondansetron PF 4 MG/2 ML Vial ONE (11:16)
[2019-06-28] MEDS ORDERED: Lidocaine 1% PF 5 ML VIAL ONE (11:16)
[2019-06-28] MEDS ORDERED: PROPOFOL 200 MG/20 ML VIAL ONE (11:16)
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
[2019-06-28] MEDS ORDERED: Midazolam HCl 2 mg/2 ml Vial ONE (13:21)
[2019-06-28] MEDS ORDERED: Fentanyl 100 MCG/2 ML VIAL ONE ×2 (13:21→15:10)
[2019-06-28] MEDS ORDERED: Ondansetron HCl/PF 4 MG/2 ML Vial IVP PRN (15:05)
[2019-06-28] MEDS ORDERED: Promethazine HCl 25 MG/ML VIAL SLOW IVP PRN (15:05)
[2019-06-28] MEDS ORDERED: Promethazine HCl 25 MG/ML VIAL IM PRN (15:05)
[2019-06-28] MEDS: Isosorbide Mononitrate (ER) 30 MG TAB PO SCH (16:04)
[2019-06-28] MEDS: Lisinopril 10 MG TAB PO SCH (16:04)
[2019-06-28] MEDS: Loratadine 10 MG TAB PO SCH (16:08)
[2019-06-28] MEDS: Polyethylene Glycol 3350 17 GM Packet PO SCH (16:08)
[2019-06-28] MEDS: Acetaminophen 500 MG TAB PO SCH ×2 (18:44→22:07)
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
[2019-06-28] MEDS: Atorvastatin Calcium 40 MG TAB PO SCH (21:11)
[2019-06-28] MEDS: CEFAZOLIN 2 GM in Premix Bag 1 BAG IVPB SCH (21:20)
--- NOTE | 2019-06-29 00:41 | PRG ---
DATE OF SERVICE: 06/28/2019 SUBJECTIVE: The patient remains on the surgical floor. The patient is postop left tibial intramedullary nail with Dr. Diaz earlier today. The patient is awake and alert. Reports mild pain to his left lower extremity. The patient is tolerating a regular diet. OBJECTIVE: VITAL SIGNS: Stable. The patient is afebrile. EXTREMITIES: The patient moves all extremities. Distal pulses intact. PLAN: Continue supportive care. Physical and Occupational Therapy work with the patient tomorrow. Continue pain regimen. Continue regular diet as tolerated. Job ID: [id number]
[2019-06-29] MEDS: Acetaminophen 500 MG TAB PO SCH ×4 (05:14→23:52)
[2019-06-29] MEDS: Ibuprofen 600 MG TAB PO SCH (05:14)
[2019-06-29] MEDS: CEFAZOLIN 2 GM in Premix Bag 1 BAG IVPB SCH (05:15)
[2019-06-29] MEDS: Ibuprofen 200 MG TAB PO SCH ×3 (06:05→21:00)
[2019-06-29 06:18] LABS: #Eosinphils 0.4 thou/uL (0.0-0.7); #Lymphocytes 1.5 thou/uL (1.20-3.40); #Monocytes 0.9 thou/uL (0.11-0.59); #Neutrophils 5.6 thou/uL (1.40-6.50); %Basophils 0.5 % (0.0-1.0); %Eosinophils 4.9 % (0.0-10.0); %Lymphocytes 17.6 % (21.0-51.0); %Monocytes 10.2 % (0.0-10.0); %Neutrophils 66.9 % (42.0-75.0); Hemoglobin 10.8 g/dL (14.0-18.0); Mean Corpuscular HGB CONC 33.9 g/dL (32.0-36.0); Mean Corpuscular Hemoglobin 30.5 pg (27.0-31.0); Mean Platelet Volume 8.5 fL (7.4-10.4); Platelet Count 156 thou/uL (130-400); RBC Distribution Width 14.8 % (11.5-14.5); Red Blood Cell (RBC) Count 3.52 mill/uL (4.70-6.10); White Blood Cell (WBC) Count 8.3 thou/uL (4.8-10.8)
[2019-06-29 06:35] LABS: Anion Gap 11 mmol/L (10-20); BUN (Urea Nitrogen) 17 mg/dL (8.4-25.7); Calc. Creatinine Clearance 71 mL/min (70-130); Calcium 8.3 mg/dL (7.8-10.44); Carbon Dioxide 23 mmol/L (23-31); Chloride 109 mmol/L (98-107); Estimated GFR-MDRD 85; Glucose 140 mg/dL (83-110); Magnesium 1.9 mg/dL (1.6-2.6); Phosphorus 3.3 mg/dL (2.3-4.7); Potassium 4.1 mmol/L (3.5-5.1); Sodium 139 mmol/L (136-145)
[2019-06-29] MEDS ORDERED: Magnesium 2 GM/50 ML 2 GM in Premix Bag 1 BAG IVPB SCH (08:00)
[2019-06-29] MEDS ORDERED: PHOS-NAK 1 PKT PACK PO SCH (08:00)
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
[2019-06-29] MEDS: Senokot S 8.6-50 MG TAB PO SCH ×2 (09:12→21:02)
[2019-06-29] MEDS: Polyethylene Glycol 3350 17 GM Packet PO SCH (09:12)
[2019-06-29] MEDS: Lisinopril 10 MG TAB PO SCH (09:12)
[2019-06-29] MEDS: Isosorbide Mononitrate (ER) 30 MG TAB PO SCH (09:13)
[2019-06-29] MEDS: Loratadine 10 MG TAB PO SCH (09:13)
[2019-06-29] MEDS: Metoprolol Tartrate 100 MG TAB PO SCH ×2 (09:13→21:01)
[2019-06-29] MEDS: Aspirin 81 mg Enteric Coated Tablet PO SCH ×2 (09:13→21:00)
[2019-06-29] MEDS ORDERED: Cyclobenzaprine 10 MG TAB PO PRN (09:36)
[2019-06-29] MEDS: HumaLOG 300 UNITS/3 ML VIAL SC PRN ×2 (12:32→16:46)
[2019-06-29] MEDS: Atorvastatin Calcium 40 MG TAB PO SCH (21:02)
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
[2019-06-30] MEDS: Acetaminophen 500 MG TAB PO SCH ×4 (06:21→23:29)
[2019-06-30] MEDS: Ibuprofen 200 MG TAB PO SCH ×3 (06:21→21:36)
[2019-06-30] MEDS: HumaLOG 300 UNITS/3 ML VIAL SC PRN ×4 (06:22→21:08)
[2019-06-30 07:43] LABS: #Eosinphils 0.6 thou/uL (0.0-0.7); #Lymphocytes 1.3 thou/uL (1.20-3.40); #Monocytes 0.8 thou/uL (0.11-0.59); #Neutrophils 7.1 thou/uL (1.40-6.50); %Basophils 0.4 % (0.0-1.0); %Eosinophils 5.6 % (0.0-10.0); %Lymphocytes 13.7 % (21.0-51.0); %Neutrophils 72.3 % (42.0-75.0); Hemoglobin 11.1 g/dL (14.0-18.0); Mean Corpuscular HGB CONC 34.7 g/dL (32.0-36.0); Mean Corpuscular Hemoglobin 30.6 pg (27.0-31.0); Mean Corpuscular Volume 88.2 fL (78.0-98.0); Mean Platelet Volume 9.1 fL (7.4-10.4); Platelet Count 136 thou/uL (130-400); RBC Distribution Width 14.6 % (11.5-14.5); Red Blood Cell (RBC) Count 3.64 mill/uL (4.70-6.10); White Blood Cell (WBC) Count 9.8 thou/uL (4.8-10.8)
--- NOTE | 2019-06-30 09:01 | PRG ---
DATE OF SERVICE: 06/30/2019 SUBJECTIVE: Kwaku is a 74-year-old male, who is postop day 2 from a left transtibial nail fixation. He is doing relatively well. He was able to stand at bedside yesterday according to therapy notes and the patient himself. OBJECTIVE: He is alert, responsive, and appropriate with examiner. His incision, there is no strike through. His splint is intact and nice and dry. IMPRESSION: A 74-year-old male, postoperative day 2, left tibial nail fixation. PLAN: Continue current care. Recheck tomorrow. Probable transfer to rehab at that time. Job ID: [id number]
[2019-06-30] MEDS: Isosorbide Mononitrate (ER) 30 MG TAB PO SCH (09:58)
[2019-06-30] MEDS: Loratadine 10 MG TAB PO SCH (09:58)
[2019-06-30] MEDS: Lisinopril 10 MG TAB PO SCH (09:59)
[2019-06-30] MEDS: Metoprolol Tartrate 100 MG TAB PO SCH ×2 (09:59→21:36)
[2019-06-30] MEDS: Senokot S 8.6-50 MG TAB PO SCH ×2 (09:59→21:12)
[2019-06-30] MEDS: Aspirin 81 mg Enteric Coated Tablet PO SCH ×2 (09:59→21:06)
[2019-06-30] MEDS: Polyethylene Glycol 3350 17 GM Packet PO SCH (09:59)
[2019-06-30] MEDS ORDERED: Melatonin 3 MG TAB PO SCH (21:00)
[2019-06-30] MEDS: Atorvastatin Calcium 40 MG TAB PO SCH (21:06)
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
[2019-07-01] MEDS: Ibuprofen 200 MG TAB PO SCH ×2 (05:37→13:54)
[2019-07-01] MEDS: Acetaminophen 500 MG TAB PO SCH ×2 (05:37→10:59)
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
[2019-07-01] MEDS: Aspirin 81 mg Enteric Coated Tablet PO SCH (09:53)
[2019-07-01] MEDS: Isosorbide Mononitrate (ER) 30 MG TAB PO SCH (09:53)
[2019-07-01] MEDS: Polyethylene Glycol 3350 17 GM Packet PO SCH (09:54)
[2019-07-01] MEDS: Senokot S 8.6-50 MG TAB PO SCH (09:54)
[2019-07-01] MEDS: Metoprolol Tartrate 100 MG TAB PO SCH (09:54)
[2019-07-01] MEDS: Lisinopril 10 MG TAB PO SCH (09:54)
[2019-07-01] MEDS: Loratadine 10 MG TAB PO SCH (09:55)
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
[2019-07-01 11:52] VITALS: BP 131/74; TEMP 97.4
[2019-07-01] MEDS: HumaLOG 300 UNITS/3 ML VIAL SC PRN (12:27)
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
== END 2019-07-01 15:25 | DRG 493 ==
LOC: ERS 18:19 → SURG B 20:30
PROVIDERS: ADMIT Specialist; ATTEND Specialist
PROC: 0QHH06Z Insertion of Intramedullary Internal Fixation Device into Left Tibia, Open Approach (ICD-10-PCS; principal; 2019-06-28)
DX: S82.292A Other fracture of shaft of left tibia, initial encounter for closed fracture (principal); S22.32XA Fracture of one rib, left side, initial encounter for closed fracture; I69.951 Hemiplegia and hemiparesis following unspecified cerebrovascular disease affecting right dominant side; I50.32 Chronic diastolic (congestive) heart failure; I69.351 Hemiplegia and hemiparesis following cerebral infarction affecting right dominant side; S82.432A Displaced oblique fracture of shaft of left fibula, initial encounter for closed fracture; V49.40XA Driver injured in collision with unspecified motor vehicles in traffic accident, initial encounter; E78.5 Hyperlipidemia, unspecified; I11.0 Hypertensive heart disease with heart failure; Z95.0 Presence of cardiac pacemaker; Z95.1 Presence of aortocoronary bypass graft; Z79.84 Long term (current) use of oral hypoglycemic drugs; Z79.82 Long term (current) use of aspirin; Z86.73 Personal history of transient ischemic attack (TIA), and cerebral infarction without residual deficits; I25.2 Old myocardial infarction; E78.00 Pure hypercholesterolemia, unspecified; R40.2412 Glasgow coma scale score 13-15, at arrival to emergency department; E11.65 Type 2 diabetes mellitus with hyperglycemia; E83.42 Hypomagnesemia; E83.39 Other disorders of phosphorus metabolism; K59.00 Constipation, unspecified
CPT/HCPCS: 36415; 36416; 70450; 71045; 76000; 80048; 80053; 80306; 80307; 83690; 83735; 83880; 84100; 85025; 85610; 85730; 86850; 86900; 86901; 93005; C1713; C1769; J0131; J0360; J0690; J2001; J2250; J2310; J2405; J2550; J2704; J3010; J3475; J3490; J7050